=== PATIENT | female | born 1985 | race Two or more races ===

== ENCOUNTER 2020-10-06 04:36 | Emergency (ER) | payer MEDICAID, SELFPAY ==
[2020-10-06 04:47] VITALS: BP 125/79; PULSE 84; RESP 18; TEMP 36.7; O2SAT 98; BMI 49.3
[2020-10-06] MEDS: Lidocaine/Racepinep/Tetracaine 3 ML GEL.PF.APP 1 ML TOPICAL (04:53)
--- NOTE | 2020-10-06 05:17 | ED_ITS ---
HPI - Skin/Abscess/Foreign Bdy General Chief complaint: Skin/Abscess/Foreign Body Stated complaint: Cyst on left breast Time Seen by Provider: 10/06/20 04:46 Source: patient Mode of arrival: ambulatory Limitations: no limitations History of Present Illness HPI narrative: This is a 35-year-old female, nondiabetic, who presents with progression of abscess to the 9 o'clock position on the left nipple. She states that that nipple had undergone a piercing quite a while back but she has not had anything in there for 3-4 months. Otherwise, she denies any fevers, chills. Related Data Previous Rx's Medication Instructions Recorded doxycycline monohydrate 100 mg PO BID 5 Days #10 cap 10/06/20 Allergies Allergy/AdvReac Type Severity Reaction Status Date / Time fish Allergy Unknown stomach Uncoded 10/06/20 05:17 upset Seafood AdvReac Mild VOMITING Uncoded 10/06/20 05:17 Review of Systems Review of Systems: Pertinent positives and negatives as stated in HPI 10 point review of systems is otherwise negative. PMFSH Past Medical History Source: nursing notes reviewed Medical History Migraine Social History Social History Advance Directives: No Physical Exam Vital Signs: Vital Signs: Last Vital Signs Temp 98.1 F 10/06/20 04:47 Pulse 84 10/06/20 04:47 Resp 18 10/06/20 04:47 BP 125/79 10/06/20 04:47 Pulse Ox 98 10/06/20 04:47 Body Mass Index 49.3 VITAL SIGNS: Reviewed. GENERAL: Well developed, well nourished, in no acute distress. HEAD: Normocephalic/atraumatic, EYES: PERRLA, EOMI intact without pain, no nystagmus/pallor/icterus noted EARS: Ext canals without abnormality, TMs non-bulging and non-erythematous NOSE: Nares patent bilateral OROPHARYNX: no oral lesions noted, posterior pharynx clear and non-erythematous without noted tonsillar enlargement/erythema/exudates LEFT NIPPLE: there is a small abscess to the left nipple at the 9 o'clock position without evidence of peau de orange, erythema NECK: Supple, no adenopathy LUNGS: Normal breath sounds. No adventitious sounds or accessory muscle use. Sp O2<98> CARDIOVASCULAR: Regular rate and rhythm without noted murmurs, no JVD or lower extremity edema. ABDOMEN: Soft, non-tender, non-distended with bowel sounds. No rigidity. No guarding. No palpable masses or hernias noted MUSCULOSKELETAL: No tenderness, deformities, or effusions noted on gross inspection. EXTREMITIES: No cyanosis, clubbing or edema. SKIN: Inspection of the skin reveals no rashes, ulcerations, jaundice, pallor, or petechiae. NEUROLOGIC: Alert and oriented x 4. Strength and sensation to light touch were grossly intact x 4. Course Course Course Narrative: This is a 35-year-old female with history and clinical presentation most consistent with abscess of left nipple. Patient tolerated incision and drainage of abscess without any perceived complications. On re- evaluation she feels better and will be following up with a primary care provider today. Procedures Abscess I/D Site: chest ( Left nipple) Side (if applicable): left Sedation/analgesia: none Technique: incised with blade (#11) Amount of fluid expressed (mL): 3 Sent for culture/gram staining?: No Irrigation: No Packing used?: none Complications: other ( none) Discharge Plan Discharge Clinical Impression: Abscess of skin or subcutaneous tissue Patient Disposition: Home, Self-Care Instructions: Abscess Incision and Drainage (DC) Additional Instructions: 1. Please apply warm moist compresses to the area 3 times a day to facilitate complete evacuation of the infection. 2. Follow-up with your primary care provider for further evaluation and management of this abscess as in rare instances it could be indicative of a more concerning problem. 3. Tylenol 1000 mg, orally, every 6 hours as needed for pain control. Do not exceed 4000 mg within 24 hours. 4. Ibuprofen 400 mg, orally with milk or food, every 6 hours as needed for pain control. The patient and/or family acknowledge understanding of results (as applicable), diagnosis, treatment plan, need for follow up, and symptoms that should prompt a return to the emergency room. Prescriptions: New doxycycline monohydrate 100 mg capsule 100 mg PO BID 5 Days Qty: 10 RF: 0 Referrals: Physician,Unknown [Primary Care Provider] - 2 days
--- NOTE | 2020-10-06 05:17 | PC.NURSE ---
TO BEDSIDE TO DRAIN LEFT NIPPLE ?ABSCESS, WITH #11 BLADE. POVIDONE-IODINE SWAB USED TO CLEANSE AREA BEFOREHAND. PT MEDICATED WITH TOPICAL GEL ORDERED, PLACED ONTO LEFT NIPPLE. PT REPORTED INCREASED PAIN AND BURNING SENSATION SHORTLY AFTER BEING MEDICATED WITH GEL. EXCESS GEL REMOVED PER PT REQUEST WITH [facility]. AWARE. THICK YELLOW/GREEN PUS REMOVED FROM ABSCESS ON LEFT NIPPLE. PLAN TO DISCHARGE HOME WITH ANTIBIOTICS AND PLAN TO FOLLOW UP WITH PRIMARY CARE PHYSICIAN AND BREAST SPECIALIST. PT AWARE & AGREEABLE WITH PLAN OF CARE.
== END 2020-10-06 05:50 | disposition home or self-care (01) ==
PROVIDERS: Emergency Provider Student in an Organized Health Care Education/Training Program
DX: N61.1 Abscess of the breast and nipple (principal); N64.4 Mastodynia; Z79.899 Other long term (current) drug therapy
CPT/HCPCS: 10060; 99283; 99284

== ENCOUNTER 2022-03-23 14:50 | Emergency (ER) | payer MEDICAID, SELFPAY ==
--- NOTE | ~2022-03-23 | CT_ITS ---
EXAMINATION: CT ABDOMEN AND PELVIS WITHOUT CONTRAST CLINICAL INFORMATION: Right flank pain COMPARISON: None TECHNIQUE: Multidetector volumetric imaging was performed from the superior aspect of the liver through the pubic symphysis. Sagittal and coronal reformatted images were obtained on the technologist's workstation. This CT examination was performed using dose optimization techniques as appropriate, variously including the following: *Automated exposure control *Adjustment of mA and/or kV according to patient size (this includes techniques or standardized protocols for targeted exams where dose is matched to indication/reason for exam; i.e. extremities or head) *Use of iterative reconstruction technique DLP: 1127 mGy-cm FINDINGS: LUNG BASES: The visualized lung bases are unremarkable. LIVER, GALLBLADDER, AND BILIARY TREE: The liver is normal in size, shape, and attenuation. No focal hepatic lesion or biliary ductal dilatation is present. Probable gallstones PANCREAS: Unremarkable. SPLEEN: Unremarkable. ADRENAL GLANDS: Unremarkable. KIDNEYS AND URETERS: 2 small nonobstructing calculi mid to upper pole on the right. Some mild fullness of the right collecting system cannot be excluded. BLADDER: Unremarkable. GASTROINTESTINAL TRACT: The bowel pattern is felt to be nonobstructing. The partially visualized appendix is within normal limits ABDOMINAL WALL: No significant hernia is appreciated. LYMPH NODES: Normal. VASCULAR: Unremarkable. PELVIC VISCERA: Unremarkable. OSSEOUS STRUCTURES: Unremarkable. CT/CT abdomen pelvis wo con IMPRESSION: 2 small nonobstructing calculi in the mid to upper pole of the right kidney. Largest measuring 2 mm. There is mild fullness of the right renal collecting system but the ureter is not dilated and there is no evidence of ureteral stone or obstruction. The bowel pattern is nonobstructing. Gallstones are noted Fleischner guidelines were followed.
[2022-03-23 15:12] VITALS: BP 124/50; PULSE 77; RESP 18; TEMP 36.9; O2SAT 98; BMI 45.1
[2022-03-23 15:38] LABS: Appearance Urine HAZY; Color Urine YELLOW; Glucose Urine UA NEG (NEG); Leukocyte Esterase Urine NEG (NEG); Nitrite Urine NEG (NEG); PH 6.5 (5.0-8.0); Specific Gravity - Urine 1.015 (1.005-1.025); UACC Culture Trigger NO; Urine Blood 2+ (NEG); Urine Ketones NEG (NEG); Urine Protein NEG (NEG-TRACE)
[2022-03-23 15:39] LABS: UPreg QC Valid YES; Urine Pregnancy NEGATIVE (NEGATIVE)
[2022-03-23 15:46] LABS: Bacteria Urine 2+ /LPF; Squamous Epithelial Cell Urine 4+ /LPF; WBC Urine 0 /HPF (0-4)
[2022-03-23 16:09] LABS: MANUAL DIFF FLAG NO
[2022-03-23 16:12] LABS: Basophils Percent Auto 0.4 % (0-2); Eosinophils Absolute Auto 0.1 X10*3/uL (0.0-0.4); Eosinophils Percent Auto 1.5 % (0-4); Hematocrit 35.8 % (37.0-47.0); Hemoglobin 11.2 g/dl (12.0-16.0); Imm Gran Abs Auto 0.04 X10*3/uL (0.00-0.03); Imm Gran Pct Auto 0.4 % (0.0-0.4); Lymphocytes Absolute Auto 2.4 X10*3/uL (1.2-4.9); Lymphocytes Percent Auto 25.2 % (20-40); Mean Corpuscular HGB Conc 31.3 g/dl (31.0-35.0); Mean Corpuscular Hemoglobin 25.6 pg (27.0-33.0); Mean Corpuscular Volume 81.9 fL (80.0-98.0); Monocytes Absolute Auto 0.8 X10*3/uL (0.1-1.2); Monocytes Percent Auto 7.9 % (2-11); Neutrophils Absolute Auto 6.2 x10*3/uL (2.0-8.3); Neutrophils Percent Auto 64.6 % (45-73); Platelet Count 344 X10*3/uL (160-400); Red Blood Count 4.37 X10*6/uL (4.20-5.50); Red Cell Distribution Width 13.7 % (11.0-16.0); White Blood Count 9.5 X10*3/uL (4.8-10.8)
--- NOTE | 2022-03-23 16:12 | ED_ITS ---
HPI - General Adult General Chief complaint: General Medical Stated complaint: question kidney stone Source: patient Mode of arrival: ambulatory Limitations: no limitations History of Present Illness HPI narrative: 36-year-old female presents with 3 days of right-sided sharp stabbing intermittent flank pain. States that it feels like her prior history of kidney stones. Does not have any fevers, chills, nausea or vomiting at this time. Onset (ago): day(s) (3) Location: abdomen and left (Flank) Radiation: non-radiation Severity: moderate Severity scale (1-10): 8 Quality: stabbing and sharp Pain Consistency: intermittent Relieving factors: none Exacerbating factors: movement Associated symptoms: denies other symptoms Treatments prior to arrival: NSAID Related Data Previous Rx's Medication Instructions Recorded doxycycline monohydrate 100 mg 100 mg PO BID 5 Days #10 cap 10/06/20 capsule ibuprofen 600 mg tablet 600 mg PO Q6H PRN #60 tab 03/23/22 prednisone 20 mg tablet 20 mg PO DAILY 4 Days #4 tab 03/23/22 tamsulosin 0.4 mg capsule (Flomax) 0.4 mg PO DAILY #30 cap 03/23/22 Allergies Allergy/AdvReac Type Severity Reaction Status Date / Time fish Allergy Unknown stomach Uncoded 03/23/22 15:14 upset Seafood AdvReac Mild VOMITING Uncoded 03/23/22 15:14 Review of Systems Review of Systems: Constitutional: No Fever, No Chills ENT/Mouth: No sore throat Eyes: No Eye Pain, No Swelling, No Redness Cardiovascular: No Chest Pain, No SOB Respiratory: No Cough, No Sputum, No Wheezing Gastrointestinal: No Nausea, no Vomiting, No Diarrhea, positive abdominal pain Genitourinary: No Dysuria, no urinary frequency, positive Hematuria, positive Flank Pain, no hesitancy Musculoskeletal: No joint pain, No Myalgias Skin: No Skin Lesions, No rash Neuro: No Weakness, No Numbness, No Headache Psych: No Anxiety/Panic, No Depression Heme/Lymph: No Bruising, No Lymphadenopathy Endocrine: No Polyuria, No Polydipsia Yes all other systems are reviewed and are negative [facility] Past Medical History Attestation statement: The following information was validated with the patient. Source: old records reviewed Medical History Migraine Social History Social History Advance Directives: No Advance Directives Information Provided: No Physical Exam ED Vital Signs: Vital Signs - 24 hr 03/23/22 15:12 03/23/22 17:06 Temperature 98.5 F 98.3 F Pulse Rate 77 90 Respiratory Rate 18 18 Blood Pressure 124/50 L 95/48 L Pulse Oximetry 98 100 BMI result Body Mass Index 45.1 Appearance: Alert. Oriented X3. No acute distress. Eyes: Pupils equal, round and reactive to light. EOMI. Sclera nonicteric. ENT: Pharynx normal. Moist mucous membranes. Neck: Normal inspection. Neck supple. CVS: Normal heart rate and rhythm. Apical pulse equal pulses to extremities. Respiratory: No respiratory distress. Breath sounds normal. Abdomen: Soft and nontender. Right-sided CVA tenderness. Skin: Skin warm and dry. Normal skin color. Normal skin turgor. Extremities: No lower extremity edema. Gait well-balanced well coordinated. Neuro: No motor deficit. No sensory deficit. Cranial nerves 2-12 intact Course Course Course Narrative: 36-year-old female presents with 3 days of right-sided intermittent sharp stabbing flank pain. Has a history of kidney stones. Urinalysis positive for heme. Physical exam positive for CVA tenderness, no abdominal tenderness to palpation. Will order CT scan of abdomen pelvis. 18:16 CT scan positive for kidney stones without obstruction or hydronephrosis or pyelo. Patient does have a urologist, I will refer to Dr. Hughes. Will prescribe Flomax and prednisone. Patient verbalized understanding of and agrees to plan of care to discharge home. Verbalized understanding of signs and symptoms indicating need for emergent intervention Medical Decision Making Differential Diagnosis Differential Diagnosis: Kidney stone, hydronephrosis, UTI Medical Records Medical records reviewed: Yes I reviewed the patient's medical records. Lab Data Lab results reviewed: Yes I reviewed the patient's lab results. Result diagrams: 03/23/22 16:06 03/23/22 16:06 Labs: Lab Results 03/23/22 03/23/22 03/23/22 Range/Units 15:30 15:30 16:06 WBC 9.5 (4.8-10.8) X10*3/uL RBC 4.37 (4.20-5.50) X10*6/uL Hgb 11.2 L (12.0-16.0) g/dl Hct 35.8 L (37.0-47.0) % MCV 81.9 (80.0-98.0) fL MCH 25.6 L (27.0-33.0) pg MCHC 31.3 (31.0-35.0) g/dl RDW 13.7 (11.0-16.0) % Plt Count 344 (160-400) X10*3/uL MPV 9.0 L (9.4-12.3) fL Immature Gran % (Auto) 0.4 (0.0-0.4) % Neut % (Auto) 64.6 (45-73) % Lymph % (Auto) 25.2 (20-40) % [place] % (Auto) 7.9 (2-11) % Eos % (Auto) 1.5 (0-4) % Baso % (Auto) 0.4 (0-2) % Lymph # (Auto) 2.4 (1.2-4.9) X10*3/uL [place] # (Auto) 0.8 (0.1-1.2) X10*3/uL Eos # (Auto) 0.1 (0.0-0.4) X10*3/uL Baso # (Auto) 0.0 (0.0-0.2) X10*3/uL Abs Immat Gran (auto) 0.04 H (0.00-0.03) X10*3/uL Absolute Neuts (auto) 6.2 (2.0-8.3) x10*3/uL Absolute Nucleated RBC 0.000 (0.0-0.012) X10*3/uL Nucleated RBC % (auto) 0.0 (0.0-0.2) /100WBC Sodium (135-145) mmol/L Potassium (3.3-5.1) mmol/L Chloride (96-108) mmol/L Carbon Dioxide (22-29) mmol/L Anion Gap (12-20) BUN (9-16) mg/dL Creatinine (0.5-1.4) mg/dL Estim Creat Clear Calc Estimated GFR Random Glucose (60-115) mg/dL Calcium (8.4-10.2) mg/dL Urine Color YELLOW Urine Appearance HAZY Urine pH 6.5 (5.0-8.0) Ur Specific [place] 1.015 (1.005-1.025) Urine Protein NEG (NEG-TRACE) MG/DL Urine Glucose (UA) NEG (NEG) MG/DL Urine Ketones NEG (NEG) MG/DL Urine Blood 2+ H (NEG) Urine Nitrite NEG (NEG) Ur Leukocyte Esterase NEG (NEG) Urine RBC 1-4 (0) /HPF Urine WBC 0 (0-4) /HPF Ur Squamous Epith Cells 4+ /LPF Urine Bacteria 2+ /LPF Urine Test NEGATIVE (NEGATIVE) 03/23/22 Range/Units 16:06 WBC (4.8-10.8) X10*3/uL RBC (4.20-5.50) X10*6/uL Hgb (12.0-16.0) g/dl Hct (37.0-47.0) % MCV (80.0-98.0) fL MCH (27.0-33.0) pg MCHC (31.0-35.0) g/dl RDW (11.0-16.0) % Plt Count (160-400) X10*3/uL MPV (9.4-12.3) fL Immature Gran % (Auto) (0.0-0.4) % Neut % (Auto) (45-73) % Lymph % (Auto) (20-40) % [place] % (Auto) (2-11) % Eos % (Auto) (0-4) % Baso % (Auto) (0-2) % Lymph # (Auto) (1.2-4.9) X10*3/uL [place] # (Auto) (0.1-1.2) X10*3/uL Eos # (Auto) (0.0-0.4) X10*3/uL Baso # (Auto) (0.0-0.2) X10*3/uL Abs Immat Gran (auto) (0.00-0.03) X10*3/uL Absolute Neuts (auto) (2.0-8.3) x10*3/uL Absolute Nucleated RBC (0.0-0.012) X10*3/uL Nucleated RBC % (auto) (0.0-0.2) /100WBC Sodium 141 (135-145) mmol/L Potassium 4.0 (3.3-5.1) mmol/L Chloride 108 (96-108) mmol/L Carbon Dioxide 27 (22-29) mmol/L Anion Gap 10 L (12-20) BUN 11 (9-16) mg/dL Creatinine 0.76 (0.5-1.4) mg/dL Estim Creat Clear Calc 150.3 Estimated GFR > 60 Random Glucose 92 (60-115) mg/dL Calcium 9.0 (8.4-10.2) mg/dL Urine Color Urine Appearance Urine pH (5.0-8.0) Ur Specific [place] (1.005-1.025) Urine Protein (NEG-TRACE) MG/DL Urine Glucose (UA) (NEG) MG/DL Urine Ketones (NEG) MG/DL Urine Blood (NEG) Urine Nitrite (NEG) Ur Leukocyte Esterase (NEG) Urine RBC (0) /HPF Urine WBC (0-4) /HPF Ur Squamous Epith Cells /LPF Urine Bacteria /LPF Urine Test (NEGATIVE) Imaging Data CT abdomen pelvis: Attestation: I personally reviewed and interpreted this imaging study as follows: Radiologist's impression: EXAMINATION: CT ABDOMEN AND PELVIS WITHOUT CONTRAST? CLINICAL INFORMATION: Right flank pain? COMPARISON: None? TECHNIQUE: Multidetector volumetric imaging was performed from the superior aspect of the liver through the pubic symphysis. Sagittal and coronal reformatted images were obtained on the technologist's workstation.? This CT examination was performed using dose optimization techniques as appropriate, variously including the following: *Automated exposure control *Adjustment of mA and/or kV according to patient size (this includes techniques or standardized protocols for targeted exams where dose is matched to indication/reason for exam; i.e. extremities or head) *Use of iterative reconstruction technique DLP: 1127 mGy-cm FINDINGS: LUNG BASES: The visualized lung bases are unremarkable.? LIVER, GALLBLADDER, AND BILIARY TREE: The liver is normal in size, shape, and attenuation. No focal hepatic lesion or biliary ductal dilatation is present. Probable gallstones? PANCREAS: Unremarkable.? SPLEEN: Unremarkable.? ADRENAL GLANDS: Unremarkable.? KIDNEYS AND URETERS: 2 small nonobstructing calculi mid to upper pole on the right. ?Some mild fullness of the right collecting system cannot be excluded. BLADDER: Unremarkable.? GASTROINTESTINAL TRACT: The bowel pattern is felt to be nonobstructing. The partially visualized appendix is within normal limits? ABDOMINAL WALL: No significant hernia is appreciated.? LYMPH NODES: Normal. VASCULAR: Unremarkable. PELVIC VISCERA: Unremarkable.? OSSEOUS STRUCTURES: Unremarkable.? CT/CT abdomen pelvis wo con IMPRESSION: 2 small nonobstructing calculi in the mid to upper pole of the right kidney. Largest measuring 2 mm. ? There is mild fullness of the right renal collecting system but the ureter is not dilated and there is no evidence of ureteral stone or obstruction. ? The bowel pattern is nonobstructing. ? Gallstones are noted? ? Fleischner guidelines were followed. Discharge Plan Discharge Clinical Impression: Kidney stone Patient Disposition: Home, Self-Care Instructions: Kidney Stones (ED) Additional Instructions: You were evaluated for right-sided flank pain. CT scan abdomen pelvis indicates kidney stones without obstruction. Please take prednisone 20 mg daily for the next 4 days. We gave you 1st dose in the emergency department. Please start this medication tomorrow. Please take Flomax 0.4 mg daily. Start this medication tomorrow. We gave 1st dose in the emergency department. Follow-up with urology. Thank you for choosing this emergency department for evaluation. Please follow-up with primary care physician as needed. Return to the emergency department for any new, concerning, or worsening symptoms. Prescriptions: New prednisone 20 mg tablet 20 mg PO DAILY 4 Days Qty: 4 0RF tamsulosin [Flomax] 0.4 mg capsule 0.4 mg PO DAILY Qty: 30 0RF ibuprofen 600 mg tablet 600 mg PO Q6H PRN (Reason: pain) Qty: 60 0RF No Action doxycycline monohydrate 100 mg capsule 100 mg PO BID 5 Days Qty: 10 0RF Referrals: Albert Hughes MD [Physician] - (Kidney stones) Interventions: ED Discharge Assessment Last Done: 03/23/22 18:34 Discharge Date/Time: 03/23/22 18:40
[2022-03-23 16:27] LABS: Anion Gap 10 (12-20); Blood Urea Nitrogen 11 mg/dL (9-16); Carbon Dioxide 27 mmol/L (22-29); Chloride 108 mmol/L (96-108); Creatinine Clr Calc Pharmacy 150.3; Estimated Glomerular Filt Rate > 60; Glucose Random 92 mg/dL (60-115); Sodium 141 mmol/L (135-145)
[2022-03-23] MEDS: 0.9 % Sodium Chloride 1,000 ML 999 ML IVCONT (17:05)
[2022-03-23] MEDS: Morphine Sulfate 4 MG/ML CARTRIDGE IVPUSH (17:05)
[2022-03-23] MEDS: ondansetron HCL 4 MG/2 ML VIAL IVPUSH (17:05)
[2022-03-23 17:06] VITALS: BP 95/48; PULSE 90; RESP 18; TEMP 36.8; O2SAT 100
[2022-03-23] MEDS: Tamsulosin HCL 0.4 MG CAPSULE PO (18:31)
[2022-03-23] MEDS: predniSONE 20 MG TABLET PO (18:31)
== END 2022-03-23 18:40 | disposition home or self-care (01) ==
PROVIDERS: Emergency Provider Emergency Medicine
DX: N20.0 Calculus of kidney (principal); Z87.442 Personal history of urinary calculi
CPT/HCPCS: 36415; 74176; 80048; 81001; 81025; 85025; 96361; 96374; 96375; 99284; J2270; J2405

== ENCOUNTER 2022-05-04 22:24 | Emergency (ER) | payer MEDICAID, SELFPAY ==
[2022-05-04 22:31] VITALS: BP 93/45; PULSE 84; RESP 18; TEMP 35.8; O2SAT 100; BMI 53.1
[2022-05-04 23:40] LABS: Appearance Urine HAZY; Color Urine YELLOW; Glucose Urine UA NEG (NEG); Leukocyte Esterase Urine 1+ (NEG); Nitrite Urine NEG (NEG); UACC Culture Trigger YES; Urine Blood 1+ (NEG); Urine Ketones NEG (NEG); Urine Protein TRACE MG/DL (NEG-TRACE)
[2022-05-04 23:42] LABS: UPreg QC Valid YES; Urine Pregnancy NEGATIVE (NEGATIVE)
[2022-05-04 23:46] LABS: Amorphous Sediment Urine 1+ /LPF; Bacteria Urine 1+ /LPF; Calcium Phosphate Crystals Ur TRACE /LPF; Mucus Urine 2+ /LPF; RBC Urine 0-2 /HPF (0); Squamous Epithelial Cell Urine 2+ /LPF
[2022-05-05] VITALS: BP 122/67; PULSE 82; RESP 16; TEMP 37; O2SAT 97
--- NOTE | 2022-05-05 00:04 | ED_ITS ---
HPI - Abdominal Pain General Chief Complaint: Abdominal Pain Stated Complaint: right lower back pain ? kidney stones Time Seen by Provider: 05/05/22 00:04 Source: patient Mode of arrival: ambulatory Limitations: no limitations History of Present Illness HPI narrative: Patient history of nonobstructive right kidney stone comes here for pain which is going on for a month was seen here in 04/10 CT scan was done which showed a 2 mm nonobstructive right kidney stone. Patient also complaining of nausea. No urinary complaints no hematuria no fever or chills no abdominal pain patient was seen by urologist conservative treatment was advised Related Data Previous Rx's Medication Instructions Recorded doxycycline monohydrate 100 mg 100 mg PO BID 5 days #10 caps 10/06/20 capsule ibuprofen 600 mg tablet 600 mg PO Q6H PRN pain #60 tabs 03/23/22 prednisone 20 mg tablet 20 mg PO DAILY 4 days #4 tabs 03/23/22 tamsulosin 0.4 mg capsule (Flomax) 0.4 mg PO DAILY #30 caps 03/23/22 cefuroxime axetil 500 mg tablet 500 mg PO BID 7 days #14 tabs 05/05/22 ondansetron 4 mg disintegrating 4 mg PO Q6-8H PRN nausea and 05/05/22 tablet vomiting #7 tabs oxycodone 5 mg tablet 5 mg PO Q6H PRN pain #20 tabs 05/05/22 Allergies Allergy/AdvReac Type Severity Reaction Status Date / Time fish Allergy Unknown stomach Uncoded 03/23/22 15:14 upset Seafood AdvReac Mild VOMITING Uncoded 03/23/22 15:14 Review of Systems Review of Systems Yes all other systems are reviewed and are negative [facility] Past Medical History Medical History Migraine Social History Social History Advance Directives: No Advance Directives Information Provided: Yes Physical Exam ED Vital Signs: Vital Signs - 24 hr 05/04/22 22:31 05/05/22 00:00 Temperature 96.5 F L 98.6 F Pulse Rate 84 82 Respiratory Rate 18 16 Blood Pressure 93/45 L 122/67 Pulse Oximetry 100 97 Oxygen Delivery Method Room Air Room Air BMI result Body Mass Index 53.1 Appearance: Alert. Oriented X3. No acute distress. ENT: Pharynx normal. Oral Mucosa moist Neck: Normal inspection. Neck supple. CVS: Normal heart rate and rhythm. Pulses normal. Respiratory: No respiratory distress. Equal air entry bilateral, no wheezing/rales/rhonchi Abdomen: Soft and nontender. Bowel sounds are present, no mass palpable, R CVA tenderness Skin: Skin warm and dry. Normal skin color. Normal skin turgor. Extremities: No lower extremity edema. No calf tenderness Neuro: Oriented X 3. No motor deficit. MDM - Abdominal Pain MDM Narrative Medical decision making narrative: Patient with chronic right flank pain nonobstructive kidney stone urine shows leukocyte will discharge patient home on Ceftin and pain medication Lab Data Attestation: I reviewed the patient's lab results. Labs: Lab Results 05/04/22 05/04/22 Range/Units 23:24 23:24 Urine Color YELLOW Urine Appearance HAZY Urine pH 7.0 (5.0-8.0) Ur Specific [place] 1.010 (1.005-1.025) Urine Protein TRACE (NEG-TRACE) MG/DL Urine Glucose (UA) NEG (NEG) MG/DL Urine Ketones NEG (NEG) MG/DL Urine Blood 1+ H (NEG) Urine Nitrite NEG (NEG) Ur Leukocyte Esterase 1+ H (NEG) Urine RBC 0-2 (0) /HPF Urine WBC 1-4 (0-4) /HPF Ur Squamous Epith Cells 2+ /LPF Calcium Phosphate Cryst TRACE /LPF Amorphous Sediment 1+ /LPF Urine Bacteria 1+ /LPF Urine Mucus 2+ /LPF Urine Test NEGATIVE (NEGATIVE) Discharge Plan Discharge Clinical Impression: Calculus of kidney, UTI (urinary tract infection) Patient Disposition: Home, Self-Care Instructions: Kidney Stones (ED), Urinary Tract Infection in Women (ED) Additional Instructions: Drink plenty of fluids Take pain medication and antibiotic as prescribed Follow urology Prescriptions: New cefuroxime axetil 500 mg tablet 500 mg PO BID 7 Days Qty: 14 0RF ondansetron 4 mg tablet,disintegrating 4 mg PO Q6-8H PRN (Reason: nausea and vomiting) Qty: 7 0RF oxycodone 5 mg tablet 5 mg PO Q6H PRN (Reason: pain) Qty: 20 0RF Rx Instructions: Partial Fill upon patient request. No Action doxycycline monohydrate 100 mg capsule 100 mg PO BID 5 Days Qty: 10 0RF prednisone 20 mg tablet 20 mg PO DAILY 4 Days Qty: 4 0RF tamsulosin [Flomax] 0.4 mg capsule 0.4 mg PO DAILY Qty: 30 0RF ibuprofen 600 mg tablet 600 mg PO Q6H PRN (Reason: pain) Qty: 60 0RF
[2022-05-05] MEDS: Ondansetron ODT 4 MG TAB.RAPDIS TRANSLINGU (00:43)
[2022-05-05] MEDS: oxyCODONE HCl Immed Release 5 MG TABLET 10 MG PO (00:44)
--- NOTE | 2022-05-05 00:44 | PC.NURSE ---
scanner not working unable to scan medications in this room
== END 2022-05-05 00:56 | disposition home or self-care (01) ==
PROVIDERS: Emergency Provider Internal Medicine; PCP Internal Medicine
DX: N39.0 Urinary tract infection, site not specified (principal); N20.0 Calculus of kidney
CPT/HCPCS: 81001; 81025; 87086; 87147; 99283; 99284

== ENCOUNTER 2022-08-24 17:31 | Emergency (ER) | payer MEDICAID, SELFPAY ==
--- NOTE | ~2022-08-24 | XR_ITS ---
EXAMINATION: XR WRIST, LEFT CLINICAL INFORMATION: Ongoing pain COMPARISON: None TECHNIQUE: PA, lateral, oblique, and scaphoid views of the left wrist. FINDINGS: No fracture or dislocation. Joint spaces are maintained. Scapholunate interval is normal. Pronator fat pad is intact. No chondrocalcinosis or erosions. XR/XR wrist LT min 3V IMPRESSION: 1. No acute osseous injury identified.
[2022-08-24 18:17] VITALS: BP 139/84; PULSE 81; RESP 16; TEMP 36.1; O2SAT 98; BMI 56.0
--- NOTE | 2022-08-24 21:24 | ED_ITS ---
HPI - Extremity Problem General Chief complaint: Extremity Injury, Upper Stated complaint: L wrist pain Time Seen by Provider: 08/24/22 20:53 Source: patient Mode of arrival: ambulatory Limitations: no limitations History of Present Illness HPI Narrative: Patient presents emergency department for evaluation of atraumatic left wrist pain with tightness and numbness in to the hand at the base of the 2nd and 3rd f tamiko. At times she feels a cool sensation to the fingers. Denies any precipitating injury. At first she thought that she had slept on it wrong but the pain continued after couple of days. Denies pain traveling up the arm. Denies any swelling of the arm. Denies history of blood. Related Data Previous Rx's Medication Instructions Recorded doxycycline monohydrate 100 mg 100 mg PO BID 5 days #10 caps 10/06/20 capsule ibuprofen 600 mg tablet 600 mg PO Q6H PRN pain #60 tabs 03/23/22 prednisone 20 mg tablet 20 mg PO DAILY 4 days #4 tabs 03/23/22 tamsulosin 0.4 mg capsule (Flomax) 0.4 mg PO DAILY #30 caps 03/23/22 cefuroxime axetil 500 mg tablet 500 mg PO BID 7 days #14 tabs 05/05/22 ondansetron 4 mg disintegrating 4 mg PO Q6-8H PRN nausea and 05/05/22 tablet vomiting #7 tabs oxycodone 5 mg tablet 5 mg PO Q6H PRN pain #20 tabs 05/05/22 Allergies Allergy/AdvReac Type Severity Reaction Status Date / Time fish Allergy Unknown stomach Uncoded 08/24/22 18:20 upset Seafood AdvReac Mild VOMITING Uncoded 08/24/22 18:20 Review of Systems Review of Systems: Musculoskeletal: positive wrist pain Yes all other systems are reviewed and are negative COUNT INCLUDES THE [facility] Past Medical History Attestation statement: The following information was validated with the patient. Source: old records reviewed Medical History Migraine Social History Social History Advance Directives: No Physical Exam Vital Signs: Vital Signs: Last Vital Signs Temp 97.0 F 08/24/22 18:17 Pulse 81 08/24/22 18:17 Resp 16 08/24/22 18:17 BP 139/84 08/24/22 18:17 Pulse Ox 98 08/24/22 18:17 O2 Del Method 08/24/22 18:17 BMI result Body Mass Index 56.0 Vital signs have been reviewed as normal and appeared to be correct. Blood pressure normal.? Heart rate normal.? Respiration rate normal. Temperature normal.? Oxygen saturation normal. Appearance: Alert.?Oriented to person, place and time. No acute distres s.?Normal affect. Eyes: Pupils equal, round and reactive to light.? ENT: Pharynx normal.?? Neck: Normal inspection.? Neck supple.?? CVS: Heart sounds normal. Normal heart rate and rhythm.? Pulses normal.?? Respiratory: No respiratory distress.? Lung sounds clear to auscultation bilaterally?? Abdomen: Soft and non-tender. Skin: Skin warm and dry.? Normal skin color.? Extremities: No lower extremity edema.? positive Tinel sign to left wrist, due to pain difficulty performing Phalen's sign. No obvious deformity. No erythema, swelling, warmth, rash. Palpable 2+ radial pulse bilaterally. Neuro: Moves all extremities spontaneously. Sensation intact bilaterally. No focal neuro deficits. Ambulates with normal steady gait. Course Course Course Narrative: Patient is a 37-year-old female no significant past medical history presenting to emergency department for evaluation of atraumatic left wrist pain. Extremities neurovascularly intact distally. XR reveals no acute fracture or dislocation. Has a positive Tinel sign upon examination, concerning for carpal tunnel syndrome. Receive naproxen while in the emergency department. Discussed plan of care for rest, activity modification, NSAID, a wrist splint. Outpatient follow-up with primary care provider. Reviewed worrisome signs symptoms to return back to emergency department for. All questions were answered. Patient discharged home in stable condition. MDM - Extremity (Nontraumatic) Medical Records Attestation: I reviewed the patient's medical records. Imaging Data XR wrist: Radiologist's impression: XR/XR wrist LT min 3V IMPRESSION: ? 1. No acute osseous injury identified. ? Discharge Plan Discharge Clinical Impression: Acute wrist pain Patient Disposition: Home, Self-Care Instructions: Arthralgia (ED) Additional Instructions: As discussed, The x-ray of your wrist was normal today, and it is possible that your pain is due to carpal tunnel syndrome. You have been given a prescription for naproxen to take twice daily, please take this with food to prevent stomach upset. Do not take additional [id number] ibuprofen / Motrin/ Advil/ Aleve/ aspirin while taking this medication. You have also been given a wrist splint, you should wear this at nighttime. Please contact your primary care provider to arrange for a follow-up visit within 1 week. Return to emergency department with any new or worsening symptoms or concerns. Prescriptions: No Action doxycycline monohydrate 100 mg capsule 100 mg PO BID 5 Days Qty: 10 0RF prednisone 20 mg tablet 20 mg PO DAILY 4 Days Qty: 4 0RF tamsulosin [Flomax] 0.4 mg capsule 0.4 mg PO DAILY Qty: 30 0RF ibuprofen 600 mg tablet 600 mg PO Q6H PRN (Reason: pain) Qty: 60 0RF cefuroxime axetil 500 mg tablet 500 mg PO BID 7 Days Qty: 14 0RF ondansetron 4 mg tablet,disintegrating 4 mg PO Q6-8H PRN (Reason: nausea and vomiting) Qty: 7 0RF oxycodone 5 mg tablet 5 mg PO Q6H PRN (Reason: pain) Qty: 20 0RF Rx Instructions: Partial Fill upon patient request.
[2022-08-24] MEDS: NaPROXEN 500 MG TABLET PO (21:34)
== END 2022-08-24 21:39 | disposition home or self-care (01) ==
PROVIDERS: Emergency Provider Emergency Medicine; PCP Internal Medicine
DX: M25.532 Pain in left wrist (principal)
CPT/HCPCS: 73110; 99283

== ENCOUNTER 2022-11-24 13:12 | Outpatient (REF) | payer MEDICAID, SELFPAY ==
--- NOTE | 2022-11-24 09:45 | EMG_ITS ---
Left median and ulnar motor and sensory studies were performed. Left radial sensory study was performed, and paraspinal muscles were tested with a needle. IMPRESSION: This study revealed mild left median neuropathy across carpal tunnel affecting sensory component. Otherwise, no significant abnormality was noted. MD POOL Zavala/RAYMOND / [id number]
== END 2022-11-24 13:13 | disposition home or self-care (01) ==
LOC: HO.NEURO 13:12
PROVIDERS: PCP Internal Medicine; Visit Provider Internal Medicine
DX: G56.02 Carpal tunnel syndrome, left upper limb (principal)
CPT/HCPCS: 95886; 95909

== ENCOUNTER → 2023-02-27 14:30 | Outpatient (BNVA) | payer MEDICAID, SELFPAY | PROVIDERS: PCP Internal Medicine; Visit Provider Physician Assistant ==

== ENCOUNTER → 2023-03-16 12:57 | Outpatient (BNVA) | payer MEDICAID, SELFPAY | PROVIDERS: PCP Internal Medicine; Visit Provider Physician Assistant | DX: E66.01 Morbid (severe) obesity due to excess calories (principal); K21.9 Gastro-esophageal reflux disease without esophagitis; M79.3 Panniculitis, unspecified; G47.33 Obstructive sleep apnea (adult) (pediatric); Z68.43 Body mass index [BMI] 50.0-59.9, adult; Z86.69 Personal history of other diseases of the nervous system and sense organs | CPT/HCPCS: 99202 ==

== ENCOUNTER → 2023-04-03 14:42 | Outpatient (BNVA) | payer MEDICAID, SELFPAY | PROVIDERS: PCP Internal Medicine; Referring Provider Physician Assistant; Visit Provider Dietitian, Registered | DX: E66.01 Morbid (severe) obesity due to excess calories (principal); Z68.43 Body mass index [BMI] 50.0-59.9, adult; Z71.3 Dietary counseling and surveillance | CPT/HCPCS: 97802 ==

== ENCOUNTER → 2023-04-11 11:00 | Outpatient (BNVA) | payer OTHER, MEDICAID, SELFPAY | PROVIDERS: PCP Internal Medicine; Referring Provider Physician Assistant; Visit Provider Counselor Mental Health | DX: F43.20 Adjustment disorder, unspecified (principal); E66.01 Morbid (severe) obesity due to excess calories ==

== ENCOUNTER → 2023-04-26 11:00 | Outpatient (BNVA) | payer MEDICAID, SELFPAY | PROVIDERS: PCP Internal Medicine; Visit Provider Physician Assistant | DX: E66.01 Morbid (severe) obesity due to excess calories (principal); Z68.43 Body mass index [BMI] 50.0-59.9, adult | CPT/HCPCS: 99212 ==

== ENCOUNTER 2023-05-10 | Outpatient (REF) | payer MEDICAID, SELFPAY | END 2023-05-10 00:01 | disposition home or self-care (01) | LOC: CF | PROVIDERS: PCP Internal Medicine; Visit Provider Dietitian, Registered | DX: E66.01 Morbid (severe) obesity due to excess calories (principal); Z71.3 Dietary counseling and surveillance | CPT/HCPCS: 97803 ==

== ENCOUNTER 2023-05-10 08:14 | Outpatient (REF) | payer MEDICAID, SELFPAY ==
--- NOTE | ~2023-05-10 | FL_ITS ---
EXAMINATION: XR FLUOROSCOPY UPPER GI WITH AIR CLINICAL INFORMATION: Obesity COMPARISON: None available. TECHNIQUE: Upper GI was performed using thin and thick barium and effervescent granules FINDINGS: Esophageal motility is normal. No hernia or reflux. The stomach and duodenum are normal. No fold thickening, mass, ulcer or stricture. FLUOROSCOPY TIME: 0.2 minutes DOSE AREA PRODUCT: 3.2 Meza per centimeter squared. Total dose 14 mgy. 16 saved fluoroscopic images FL/FL upper GI w air IMPRESSION: Unremarkable examination.
--- NOTE | ~2023-05-10 | XR_ITS ---
EXAMINATION: XR CHEST CLINICAL INFORMATION: Obesity COMPARISON: None available. TECHNIQUE: 2 views of the chest were obtained. FINDINGS: No significant abnormality is noted involving the heart, lungs, mediastinum, bony thorax or soft tissues. XR/XR chest 2V IMPRESSION: Unremarkable examination.
--- NOTE | ~2023-05-10 | US_ITS ---
EXAMINATION: US COMPLETE ABDOMEN WITH LIVER ELASTOGRAPHY CLINICAL INFORMATION: Obesity COMPARISON: Previous CT of the abdomen and pelvis March 2022 TECHNIQUE: Real-time imaging of the abdominal viscera. Noninvasive ultrasound liver fibrosis assessment is performed using Kelsie ElastPQ point quantification shear wave elastography (2D-SWE) with a C5-2 MHz transducer. Multiple elastography samples are obtained. FINDINGS: PANCREAS: Normal. ABDOMINAL AORTA: The proximal, middle, and distal aortic segments are normal in caliber. INFERIOR VENA CAVA: Visualized portions are normal. LIVER: Normal. The liver demonstrates normal size, contour and echogenicity. No focal lesion or intrahepatic biliary duct dilatation. The right lobe measures 18 cm in length. The left lobe measures 10 cm in length. Portal flow is normal/hepatopedal Shear wave liver elastography median stiffness is 1.28 m/s (reference: normal median stiffness is 1.3 m/s or less). IQR/median stiffness to assess sampling precision is 0.07 (reference: good quality data set is IQR/median stiffness of 0.15 or less). GALLBLADDER: Gallstones. The gallbladder is otherwise normal. COMMON BILE DUCT: Normal in caliber measuring 0.5 cm in diameter. RIGHT KIDNEY: Paolo and small stone in the upper pole measuring 3 mm. No hydronephrosis. The kidney measures 11.6 cm in maximum dimension. LEFT KIDNEY: Normal. No hydronephrosis. No renal calculi or focal parenchymal lesions. The kidney measures 12 cm in maximum dimension. SPLEEN: Normal. The spleen measures 10 cm in maximum dimension. FREE FLUID: None. US/US abdomen comp w elastography IMPRESSION: 1. Impression: Normal-appearing liver. Gallstones. Question small right renal stone. 2. Liver elastography: Adequate liver sampling. Normal liver stiffness. REFERENCE: Society of Radiologists in Ultrasound Liver Stiffness Thresholds (2020): LIVER STIFFNESS THRESHOLDS: *Liver Stiffness equal or less than 1.3 m/s: High probability of being normal. *Liver Stiffness less than 1.7 m/s: In the absence of other known clinical signs, rules out compensated advanced chronic liver disease. *Liver Stiffness 1.7-2.1 m/s: Suggestive of compensated advanced chronic liver disease but need further test for confirmation. *Liver Stiffness over 2.1 m/s: Rules in compensated advanced chronic liver disease. *Liver Stiffness over 2.4 m/s: Suggestive of clinically significant portal hypertension. QUALITY OF DATA SET: *IQR/Median value equal or less than 0.15 implies a quality data set. *IQR/Median value over 0.15 implies a poor quality data set. SIGNIFICANT CHANGE FROM PRIOR EXAM: Significant change if liver stiffness measurement is 10% or greater from prior exam. OTHER CONSIDERATIONS: The stage of liver fibrosis may be overestimated in the setting of acute hepatitis, liver inflammation, elevated liver function tests, hepatic vascular congestion, obstructive cholestasis, non-fasting state, and infiltrative diseases such as amyloidosis and lymphoma. In some patients with NAFLD, the liver stiffness thresholds for compensated advanced chronic liver disease may be lower. In causes other than viral hepatitis and NAFLD, liver stiffness thresholds are not well established.
--- NOTE | 2023-05-10 10:02 | ECG_ITS ---
Test Reason : e66.01 Blood Pressure : / mmHG Vent. Rate : 072 BPM Atrial Rate : 072 BPM P-R Int : 140 ms QRS Dur : 088 ms QT Int : 394 ms P-R-T Axes : 017 028 019 degrees QTc Int : 431 ms Normal sinus rhythm Normal ECG No previous ECGs available Referred By: Theresa Nichols Electronically Signed By:LUCHO RODRIGUEZ
[2023-05-10 10:13] LABS: MANUAL DIFF FLAG NO
[2023-05-10 10:47] LABS: Basophils Percent Auto 0.3 % (0-2); Eosinophils Absolute Auto 0.1 X10*3/uL (0.0-0.4); Eosinophils Percent Auto 1.6 % (0-4); Hematocrit 38.4 % (37.0-47.0); Hemoglobin 12.3 g/dl (12.0-16.0); Imm Gran Abs Auto 0.03 X10*3/uL (0.00-0.03); Imm Gran Pct Auto 0.3 % (0.0-0.4); Lymphocytes Absolute Auto 2.5 X10*3/uL (1.2-4.9); Lymphocytes Percent Auto 28.3 % (20-40); Mean Corpuscular Hemoglobin 26.4 pg (27.0-33.0); Mean Corpuscular Volume 82.4 fL (80.0-98.0); Monocytes Absolute Auto 0.6 X10*3/uL (0.1-1.2); Monocytes Percent Auto 6.4 % (2-11); Neutrophils Absolute Auto 5.6 x10*3/uL (2.0-8.3); Neutrophils Percent Auto 63.1 % (45-73); Platelet Count 376 X10*3/uL (160-400); Red Blood Count 4.66 X10*6/uL (4.20-5.50); Red Cell Distribution Width 14.2 % (11.0-16.0); White Blood Count 8.8 X10*3/uL (4.8-10.8)
[2023-05-10 11:26] LABS: Estimated Average Glucose 103 mg/dL; Hemoglobin A1c % 5.2 %
[2023-05-10 12:04] LABS: Alanine Aminotransferase 18 U/L (0-31); Albumin Level 3.9 g/dL (3.5-5.0); Alkaline Phosphatase 129 U/L (39-117); Anion Gap 13 (12-20); Aspartate Amino Transferase 15 U/L (5-31); Bilirubin Total 0.7 mg/dL (0.0-1.0); Blood Urea Nitrogen 6 mg/dL (9-16); C Reactive Protein 3.63 mg/dL (< or = 0.50); Calcium 9.1 mg/dL (8.4-10.2); Carbon Dioxide 26 mmol/L (22-29); Chloride 106 mmol/L (96-108); Cholesterol 173 mg/dL; Estimated Glomerular Filt Rate > 60; Glucose Random 93 mg/dL (60-115); HDL Cholesterol 50 mg/dL; Iron 53 mcg/dL (30-160); LDL Cholesterol Calculated 103 mg/dl; Percent Iron Saturation 15 % (15-50); Potassium 3.7 mmol/L (3.3-5.1); Sodium 141 mmol/L (135-145); Total Iron Binding Capacity 361 mcg/dL (228-428); Total Protein 8.2 g/dL (6.5-8.0); Triglycerides 101 mg/dL; Unsaturated Iron Binding 308 ug/dL
[2023-05-10 12:25] LABS: Ferritin 28 ng/mL (10-122); Insulin 32 uU/mL (2-29); TSH reflex Free T4 1.88 uIU/mL (0.32-4.0); Vitamin D 25-OH Total 12.9 ng/mL (>30)
[2023-05-10 12:29] LABS: Folate 13.5 ng/mL (> or = 4.0); Vitamin B12 403 pg/mL (200-900)
[2023-05-15 13:13] LABS: Zinc 66 mcg/dL (60-130)
[2023-05-15 14:32] LABS: PTHI 177 pg/mL (16-77)
[2023-05-17 05:23] LABS: Vitamin A 25 mcg/dL (38-98)
[2023-05-18 14:33] LABS: Vitamin B1 11 nmol/L (8-30)
== END 2023-05-10 08:15 | disposition home or self-care (01) ==
LOC: HO.US 08:14
PROVIDERS: PCP Internal Medicine; Visit Provider Physician Assistant
DX: Z01.818 Encounter for other preprocedural examination (principal); E66.01 Morbid (severe) obesity due to excess calories; K21.9 Gastro-esophageal reflux disease without esophagitis; G47.33 Obstructive sleep apnea (adult) (pediatric)
CPT/HCPCS: 36415; 71046; 74246; 76705; 76981; 80053; 80061; 82306; 82607; 82728; 82746; 83036; 83525; 83540; 83970; 84425; 84443; 84590; 84630; 85025; 86140; 93005

== ENCOUNTER 2023-08-29 14:29 | Outpatient (AMB) | payer MEDICAID, SELFPAY ==
--- NOTE | 2023-08-29 11:33 | MHC.OFFVISWM ---
Intake VS Expanded 08/29/23 14:42 BP 137/67 Blood Pressure Location Rt brachial Blood Pressure Position Sitting Pulse 75 Pulse Source Pulse Oximeter Temp 96.5 F L Temperature Source Tympanic Pulse Oximetry 99 Oxygen Delivery Method Room Air Height 5 ft Weight 301 lb 12.8 oz BMI 58.9 Body Fat % 51.7 Body Fat Mass 155.8 Fat Free Mass 145.8 Visceral Fat Rating 21.0 Body Water % 34.6 Body Water Mass 104.4 Muscle Mass/Score 138.4 Basal Metabolic Rate/Score 2,129 Intake Visit Reasons: (OV) F/U SWL Allergies fish Allergy (Unknown, Uncoded 08/29/23 14:41) stomach upset Seafood Adverse Reaction (Mild, Uncoded 08/29/23 14:41) VOMITING Medication List - Last Reconciled 08/29/23 by Theresa Nichols PA-C cholecalciferol (vitamin D3) 50 mcg PO DAILY clotrimazole 1% 1 appl topical BID levonorgestrel (Mirena) intrauterine loratadine 10 mg PO DAILY PRN HPI HPI Comments History of Present Illness Details [facility] follow up - has not been seen since April 26. Starting weight was 298.6 lbs on 03/16/23. Gained 3 lbs. Was having AUB and had Mirena inserted this month and started on iron supplements. Did not take Vit A or D supplements - will start now- needs vitamin A without fish products due to allergy - will buy OTC. Meal plan: not using now. Will use Premier shakes and Atkins bars Wakes at 4:45 am and bed at 10 - 11pm. 7:30 - 30 gram shake - over 30 minutes 10:30 bar 1:30- 2pm - shake 5pm - meal of 6 oz protein adn 6 oz vegetable, and 1 fruit 8pm - bar Exercise - Ghislaine Arvind 1mile every day. in am before work. Exercise plan: not yet Pre op work up completed as follows: [facility] classes - BH appts -cleared RD appts - follow up on 05/10, missed her follow up on 06/07 H pylori - not done yet - will do today Labs- Vit A and D deficient - PTH - 177. CXR and ECG - both normal ULS - gallstones, R 18 cms, L 11 cms UGI - normal PFSH Medical History (Updated 08/29/23 @ 11:38 by Theresa Nichols PA-C) Migraine Surgical History Hx of endoscopy Hx of breast surgery Hx of section Family History Mother Hypertension High cholesterol Father No problems noted. Sister Multiple sclerosis Hypertension Diabetes Brother Asthma Son Asthma Son No problems noted. Daughter Asthma Daughter No problems noted. Daughter No problems noted. Social History Alcohol intake: current Alcohol intake frequency: holidays/special occasions only Patient Tobacco Use Status: Never used Tobacco Assessment & Plan Assessment & Plan (1) Morbid obesity: Code(s): E66.01 - Morbid (severe) obesity due to excess calories Plan: Will restart our SWL program now. All appointments reviewed. She is being scheduled with Adeline now - recipe books given today. H pylori today SWL classes given access today. See HPI for her meal and exercise plans Next appt with me in 3 weeks. Patient is morbidly obese and is not considered stable at this time. I spent 30 minutes in total with patient reviewing/updating records, examining the patient and counseling the patient on weight management as detailed above. (2) Obstructive sleep apnea: Code(s): G47.33 - Obstructive sleep apnea (adult) (pediatric) (3) Vitamin D deficiency: Code(s): E55.9 - Vitamin D deficiency, unspecified Plan: will restart today and will recheck Vit D and PTH in 2 months. (4) Vitamin A deficiency: Code(s): E50.9 - Vitamin A deficiency, unspecified Plan: will buy OTC without fish oil (5) Elevated PTHrP level: Code(s): R79.89 - Other specified abnormal findings of blood chemistry Plan: see above Coding Level of Care Code Est Pt Level 4 (41504) Diagnoses Morbid obesity E66.01 Obstructive sleep apnea G47.33 Vitamin D deficiency E55.9 Vitamin A deficiency E50.9 Elevated PTHrP level R79.89
[2023-08-29 14:42] VITALS: BP 137/67; PULSE 75; TEMP 35.8; O2SAT 99; BMI 58.9
== END 2023-08-29 15:16 | disposition home or self-care (01) ==
PROVIDERS: PCP Internal Medicine; Visit Provider Physician Assistant
DX: E66.01 Morbid (severe) obesity due to excess calories (principal); G47.33 Obstructive sleep apnea (adult) (pediatric); E55.9 Vitamin D deficiency, unspecified; E50.9 Vitamin A deficiency, unspecified; R79.89 Other specified abnormal findings of blood chemistry
CPT/HCPCS: 99214

== ENCOUNTER 2023-08-29 14:29 | Outpatient (REF) | payer MEDICAID, SELFPAY ==
[2023-09-01 11:51] LABS: H Pylori Breath Test Negative (Negative)
== END 2023-08-29 14:30 | disposition home or self-care (01) ==
LOC: HO.LNP 14:29
PROVIDERS: PCP Internal Medicine; Visit Provider Physician Assistant
DX: Z01.818 Encounter for other preprocedural examination (principal); E66.01 Morbid (severe) obesity due to excess calories; K21.9 Gastro-esophageal reflux disease without esophagitis; G47.33 Obstructive sleep apnea (adult) (pediatric)
CPT/HCPCS: 83013; 99212

== ENCOUNTER 2023-09-25 16:00 | Outpatient (AMB) | payer MEDICAID, SELFPAY ==
--- NOTE | 2023-09-25 12:57 | MHC.OFFVISWM ---
Intake VS Expanded 09/25/23 16:15 Height 5 ft Weight 296 lb 2 oz BMI 57.8 Intake Visit Reasons: VIDEO F/U SWL Allergies fish Allergy (Unknown, Uncoded 08/29/23 14:41) stomach upset Seafood Adverse Reaction (Mild, Uncoded 08/29/23 14:41) VOMITING HPI HPI Comments History of Present Illness Details [facility] follow up - Starting weight was 298.6 lbs on 03/16/23, was not seen for 3 months and then had appt on August 29 with 3 lb weight gain. Has only lost 2 lbs in 6 months. Just released from [email or web address] due to kidney stones - had lithotripsy and stents now removed. Meal plan: 8am - 30 gram shake - over 30 minutes 10:30 bar 1pm - shake 5pm - meal of 6 oz protein and 6 oz vegetable (uses scale) and 1 fruit 8pm - bar sometimes Exercise - Has not been exercising at all, was doing LS, wants something else now Pre op work up completed as follows: SWL classes - watched the wrong ones/8 appts -cleared RD appts - follow up on 05/10, missed her follow up on 06/07 and 09/22. H pylori - negative Labs- Vit A and D deficient - PTH - 177. CXR and ECG - both normal ULS - gallstones, R 18 cms, L 11 cms UGI - normal PFSH Medical History (Updated 08/29/23 @ 11:38 by Theresa Nichols PA-C) Migraine Surgical History Hx of endoscopy Hx of breast surgery Hx of section Family History Mother Hypertension High cholesterol Father No problems noted. Sister Multiple sclerosis Hypertension Diabetes Brother Asthma Son Asthma Son No problems noted. Daughter Asthma Daughter No problems noted. Daughter No problems noted. Social History Alcohol intake: current Alcohol intake frequency: holidays/special occasions only Patient Tobacco Use Status: Never used Tobacco Assessment & Plan Assessment & Plan (1) Morbid obesity: Code(s): E66.01 - Morbid (severe) obesity due to excess calories Plan: 2 lb weight loss in 6 months, has not fully committed to the program yet. States shes ready now. Only meal plan change sit omeasure meal in [address] Juli Malhotra having only halff bar after dinner. Exercise - a MUST to start TBP videos at least 4 d/week Will schedule with me in 3 weeks and follow up with Adeline once she has watched all SWL videos. Patient is still morbidly obese and is not considered stable at this time. I spent 28 minutes in total speaking with the patient via telephone counseling , reviewing records and charting in patients chart. . (2) Obstructive sleep apnea: Code(s): G47.33 - Obstructive sleep apnea (adult) (pediatric) Telehealth Telehealth Location of provider rendering services: practice address Location of patient: address on file Patient Identification confirmed using: Name, : Yes Telehealth method: voice only Patient verbally consented to treatment: Yes Patient verbally consented to billing insurance company: Yes Patient informed of any privacy concerns related to visit: Yes Coding Level of Care Code Tele Est Pt Level 4 (80552) Diagnoses Morbid obesity E66.01 Obstructive sleep apnea G47.33
[2023-09-25 16:15] VITALS: BMI 57.8
== END 2023-09-25 16:29 | disposition home or self-care (01) ==
LOC: HO.HBS 16:20
PROVIDERS: PCP Internal Medicine; Visit Provider Physician Assistant
DX: E66.01 Morbid (severe) obesity due to excess calories (principal); G47.33 Obstructive sleep apnea (adult) (pediatric)
CPT/HCPCS: 99214

== ENCOUNTER → 2023-09-25 16:00 | Outpatient (BNVA) | payer MEDICAID, SELFPAY | PROVIDERS: PCP Internal Medicine; Visit Provider Physician Assistant ==

== ENCOUNTER → 2023-10-05 10:58 | Outpatient (BNVA) | payer MEDICAID, SELFPAY | PROVIDERS: PCP Internal Medicine; Visit Provider Dietitian, Registered | DX: E66.9 Obesity, unspecified (principal) | CPT/HCPCS: 97803 ==

== ENCOUNTER 2024-12-06 07:57 | Outpatient (AMB) | payer MEDICAID, SELFPAY ==
--- NOTE | 2024-12-06 09:29 | A.OFFVIS_ITS ---
VS Expanded 12/06/24 09:38 Height 5 ft Weight 265 lb 2 oz BMI 51.8 Body Fat % 50.1 Body Fat Mass 132.8 Fat Free Mass 132.2 Visceral Fat Rating 17 Body Water % 35.8 Body Water Mass 94.8 Basal Metabolic Rate/Score 1,912 Intake Visit Reasons: TV [employer] BMI 51.8 Allergies fish Allergy (Unknown, Uncoded 12/06/24 09:29) stomach upset Seafood Adverse Reaction (Mild, Uncoded 12/06/24 09:29) VOMITING Medication List - Last Reconciled 12/06/24 by Audie Stephenson MD amitriptyline 25 mg PO BEDTIME [id number]-[id number]-vqik 50-325-40 mg 1 tab PO Q8H PRN clotrimazole 1% 1 appl topical BID famotidine 40 mg PO BEDTIME propranolol 80 mg PO BID HPI HPI TV [employer] BMI 51.8: Details: Start time: 9.12am, End time: 9.57am ?I spent 40 minutes speaking with the patient on the phone plus an additional 5 minutes reviewing and updating records for a total of 45 minutes HPI Comments Details: Previous weight loss efforts: [facility] program, Wegovy: 37 lbs Wakes up: 5am, sleeps: 10pm Breakfast: 6-7am (eggs with toast) Lunch: often skips Dinner: 5-6pm (rice, beans, meat) Snacks: 12-1pm (chips/cookies), 8pm (oranges, fruits) Exercise: has gym membership Fluids: Coffee: none, tea: none, soda: none, juice: diet juice, ETOH: none PFSH Medical History (Updated 12/06/24 @ 09:33 by Audie Stephenson MD) DJD (degenerative joint disease) Hypertension Morbid obesity Migraine Surgical History (Updated 12/04/24 @ 15:37 by Amy Regan CMA) Hx of hysterectomy Hx of endoscopy Hx of breast surgery Hx of section Family History Mother Hypertension High cholesterol Father No problems noted. Sister Multiple sclerosis Hypertension Diabetes Brother Asthma Son Asthma Son No problems noted. Daughter Asthma Daughter No problems noted. Daughter No problems noted. Social History (Updated 12/04/24 @ 15:37 by MARVIN Jacob Alcohol intake: current Alcohol intake frequency: does not drink Patient Tobacco Use Status: Never used Tobacco Telehealth Telehealth Telehealth Platform: Telephone Location of provider rendering services: practice address Location of patient: address on file Patient Identification confirmed using: Name, : Yes Telehealth method: voice only Patient verbally consented to treatment: Yes Patient verbally consented to billing insurance company: Yes Patient informed of any privacy concerns related to visit: Yes Minutes spent on Phone/Video with Pt.: 45 Assessment & Plan Assessment & Plan (1) Morbid obesity: Code(s): E66.01 - Morbid (severe) obesity due to excess calories Category: Medical Plan: 1.? Plan for lap sleeve gastrectomy. If diaphragmatic or ventral hernias are present at time of surgery, these will be repaired laparoscopically as well. I emphasized the importance of close follow-up, adherence to instructions and good communication. The surgery does not replace the need to change your lifestlyle which is the cause of the obesity problem. The surgery provides the motivation to try again to change your lifestyle, it reduces the appetite and make the transition to a better lifestyle easier and doubles the amount of weight you would lose compared to doing the lifestyle change without the surgery. You will need to be on a liquid diet with protein shakes for 2 weeks before surgery to maximize weight loss and boost your nutritional status to recover better from surgery and also for the first two weeks after surgery to let the stomach heal before we introduce other foods. After the first 2 weeks we will introduce protein bars and soft foods like scrambled eggs, cottage cheese and yogurt and after the 6th week will introduce meat, fish and cooked vegetables in small amounts. Over time you should be able to eat everything in small amounts. Side effects like nausea, vomiting, heartburn or abdominal pain are not common in the practice unless you are not following in the practice. This operation requires lifetime commitment to following in our practice and communication with me. You will much less weight and experience side effects if you don?t communicate or not following in the practice. Complications are rare and in our practice is about 1/10 of the national average. However, you can develop bleeding that may require transfusion (hasn?t happened for year in the practice), you may from complications (we did not have any deaths in the practice) and infections. Infections are usually a result of breakdown in c ommunication or not understanding or following directions correctly. They are difficult to treat, they can happen during the first 6 weeks, they may require to be in the hospital for weeks or even months, not being able to eat by mouth and you may have drains and surgeries to try and correct the issue. Other risks and complications include possible conversion to an open procedure, leaks, small bowel obstruction, blood clots, cardiac, or pulmonary complications, as senior living complications such as ulcers, insufficient weight loss and vitamin deficiencies. 2. You will receive a link of our software lenard to generate an individualized nutritional and exercise plan specific for you. Please send me a screenshot of the plans you will generate Meal to include lean meat (beef, fish, pork, turkey, chicken), or greenlandic yogurt, or egg whites, or beans with a salad with olive oil and fruits (berries, pears, apples, kiwi). Avoid salt, breads, potatoes, rice, pasta, desserts. ?3. If you choose shakes, each shake would be drunk slowly, like coffee in a period of 2 hours. ?4. If you choose bars, cut each bar in 4 pieces and eat each piece in 30min ?to make each bar last 2 hours. ?5. I emphasized the importance of measuring accurately the food portion and measure it when serving the food in plate ?6. The meal portions include a specific number of forks of meat and salad. You always eat the meat portion but you can replace up to half of salad/vegetables portion with rice, potatoes or pasta, or a fruit ?if you like. The less you do it the better weight loss will be. ?7. One full-size fork is what it can be scooped on the fork without falling aside and not what can be bit with the fork. Use regular forks like those you find in a typical restaurant. ?8.? Please buy the body composition scale we discussed and send me weight measurements as soon as possible and then once a week. Always include your diet and exercise plan. 9. The best choice would be to purchase a stationary bike, elliptical or treadmill at home that can track calories. Let me know if you do so I can give you an exercise plan. ?10.?It is important of avoiding and for at least 18 months postoperatively and has been discussed at the infosession. ?11. Goal is to lose at least 1.5-2lbs per week ?12. Goal to lose 10% of your weight before surgery, which is about 26lbs. Ultimate weight goal: 239lbs before surgery 13. Please follow the diet plan exactly without any change. If you don't like something about the plan or you feel hungry you need to communicate with me so I can help you revise the plan. You should not change the plan yourself. 14. To be scheduled for EGD on Monday12/17/24 due to the history of GERD. The possibility of biopsies was discussed. Patient needs to avoid use of NSAIDs and aspirin for 1 week prior to EGD. You must be on liquids only the day before your endoscopy. Risks of perforation and bleeding was discussed with the patient. This will be an outpatient procedure with IV sedation. Orders: Orders Insulin Today E66.01 - Morbid (severe) obesity due to excess calories, G47.33 - Obstructive sleep apnea (adult) (pediatric), K21.9 - Gastro-esophageal reflux disease without esophagitis Zinc Today E66.01 - Morbid (severe) obesity due to excess calories, G47.33 - Obstructive sleep apnea (adult) (pediatric), K21.9 - Gastro-esophageal reflux disease without esophagitis C Reactive Protein Today E66.01 - Morbid (severe) obesity due to excess calories, G47.33 - Obstructive sleep apnea (adult) (pediatric), K21.9 - Gastro- esophageal reflux disease without esophagitis TSH reflex Free T4 Today E66.01 - Morbid (severe) obesity due to excess calories, G47.33 - Obstructive sleep apnea (adult) (pediatric), K21.9 - Gastro- esophageal reflux disease without esophagitis Ferritin Today E66.01 - Morbid (severe) obesity due to excess calories, G47.33 - Obstructive sleep apnea (adult) (pediatric), K21.9 - Gastro-esophageal reflux disease without esophagitis Vitamin D 25-OH Total Today E66.01 - Morbid (severe) obesity due to excess calories, G47.33 - Obstructive sleep apnea (adult) (pediatric), K21.9 - Gastro-esophageal reflux disease without esophagitis US abdomen comp w elastography Today E66.01 - Morbid (severe) obesity due to excess calories, G47.33 - Obstructive sleep apnea (adult) (pediatric), K21.9 - Gastro-esophageal reflux disease without esophagitis FL upper GI w air Today E66.01 - Morbid (severe) obesity due to excess calories, G47.33 - Obstructive sleep apnea (adult) (pediatric), K21.9 - Gastro- esophageal reflux disease without esophagitis Hemoglobin A1c Today E66.01 - Morbid (severe) obesity due to excess calories, G47.33 - Obstructive sleep apnea (adult) (pediatric), K21.9 - Gastro-esophageal reflux disease without esophagitis H Pylori Breath Test Today E66.01 - Morbid (severe) obesity due to excess calories, G47.33 - Obstructive sleep apnea (adult) (pediatric), K21.9 - Gastro- esophageal reflux disease without esophagitis Complete Blood Count Auto Diff Today E66.01 - Morbid (severe) obesity due to excess calories, G47.33 - Obstructive sleep apnea (adult) (pediatric), K21.9 - Gastro-esophageal reflux disease without esophagitis Lipid Panel Today E66.01 - Morbid (severe) obesity due to excess calories, G47.33 - Obstructive sleep apnea (adult) (pediatric), K21.9 - Gastro-esophageal reflux disease without esophagitis IRON PROFILE Today E66.01 - Morbid (severe) obesity due to excess calories, G47.33 - Obstructive sleep apnea (adult) (pediatric), K21.9 - Gastro-esophageal reflux disease without esophagitis Comprehensive Met. Panel Today E66.01 - Morbid (severe) obesity due to excess calories, G47.33 - Obstructive sleep apnea (adult) (pediatric), K21.9 - Gastro-esophageal reflux disease without esophagitis Vitamin B12 and Folate Today E66.01 - Morbid (severe) obesity due to excess calories, G47.33 - Obstructive sleep apnea (adult) (pediatric), K21.9 - Gastro- esophageal reflux disease without esophagitis Vitamin B1 Today E66.01 - Morbid (severe) obesity due to excess calories, G47.33 - Obstructive sleep apnea (adult) (pediatric), K21.9 - Gastro-esophageal reflux disease without esophagitis Vitamin A Today E66.01 - Morbid (severe) obesity due to excess calories, G47.33 - Obstructive sleep apnea (adult) (pediatric), K21.9 - Gastro-esophageal reflux disease without esophagitis XR chest 2V Today E66.01 - Morbid (severe) obesity due to excess calories, G47.33 - Obstructive sleep apnea (adult) (pediatric), K21.9 - Gastro-esophageal reflux disease without esophagitis ECG 12 lead EKG Today E66.01 - Morbid (severe) obesity due to excess calories, G47.33 - Obstructive sleep apnea (adult) (pediatric), K21.9 - Gastro-esophageal reflux disease without esophagitis Referrals Behavioral Health Referral E66.01 - Morbid (severe) obesity due to excess calories, G47.33 - Obstructive sleep apnea (adult) (pediatric), K21.9 - Gastro- esophageal reflux disease without esophagitis Nutrition/Dietitian Referral E66.01 - Morbid (severe) obesity due to excess calories, G47.33 - Obstructive sleep apnea (adult) (pediatric), K21.9 - Gastro- esophageal reflux disease without esophagitis
[2024-12-06 09:38] VITALS: BMI 51.8
== END 2024-12-06 10:02 | disposition home or self-care (01) ==
LOC: HO.HBS 07:57
PROVIDERS: PCP Internal Medicine; Visit Provider Surgery
DX: E66.01 Morbid (severe) obesity due to excess calories (principal)
CPT/HCPCS: 99204

== ENCOUNTER → 2024-12-06 07:57 | Outpatient (BNVA) | payer MEDICAID, SELFPAY | PROVIDERS: PCP Internal Medicine; Visit Provider Surgery ==

== ENCOUNTER 2024-12-13 11:12 | Outpatient (AMB) | payer OTHER, SELFPAY ==
--- NOTE | 2024-12-13 11:00 | A.OFFWM_ITS ---
Intake Intake Visit Reasons: VIDEO BH Intake Allergies fish Allergy (Unknown, Uncoded 12/06/24 09:29) stomach upset Seafood Adverse Reaction (Mild, Uncoded 12/06/24 09:29) VOMITING PFSH Medical History (Updated 12/06/24 @ 09:33 by Audie Stephenson MD) DJD (degenerative joint disease) Hypertension Morbid obesity Migraine Surgical History (Updated 12/04/24 @ 15:37 by Amy Regan [facility]) Hx of hysterectomy Hx of endoscopy Hx of breast surgery Hx of section Family History Mother Hypertension High cholesterol Father No problems noted. Sister Multiple sclerosis Hypertension Diabetes Brother Asthma Son Asthma Son No problems noted. Daughter Asthma Daughter No problems noted. Daughter No problems noted. Social History (Updated 12/04/24 @ 15:37 by Amy Regan [employer]) Alcohol intake: current Alcohol intake frequency: does not drink Patient Tobacco Use Status: Never used Tobacco Behavioral Health Assessment Weight Management Therapy Therapy Notes Details Patient is a 39-year-old female, , presenting for an initial behavioral health assessment as part of a surgical weight loss program. The patient previously enrolled in the program in 2022 but had to discontinue due to undergoing two surgeries (hysterectomy and treatment for kidney stones). The patient expresses uncertainty about proceeding with the program but has begun taking initial steps to comply with the provider?s expectations regarding the meal and exercise plans. The assessment will be continued during a follow-up visit. Presenting Concerns Referral Source WMP-Provider Reason for referral Completion of behavioral health assessment as part of process for weight-loss surgery. Precipitating Event Obesity Living Situation Current Living Situation Own At risk of losing current housing? No Satisfied with current living situation? Yes Comments PT lives with her and her 5 children ages 21, 17, 15, 14, and 11 years old. Food/Weight/Diet Expectations of change initial Goal to lose 10% of her weight before surgery, which is about 26lbs. Ultimate weight goal: 239lbs before surgery. Initial weight: 265Lbs Meal plan: hasn't started Exercise plan: Gym membership. Attends 3-4 days at week. Used treadmill for 1.5 Hr. Social History Family history and relationship Pt is 23 years ago, They have 5 children. PT has 2 siblings on mom's side, and 5 on father's side. Her parents are alive but several years ago. PT reports she's close to her mom and 2 siblings and her 's family. PT describe overall good family relationships. 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 Developmental history and status None Currently WNL. Social support , sister, mother, and friends. Also some co-workers. Community support PCP and WMP providers. Mormon/Spirituality Pentecostal. Cultural/Ethnic information PT was born and raised in [place]. Moved to the [place] when she was 9 years old. PT is bilingual. Legal Involvement and History Current or historical involvement with the legal system? None Education Highest grade completed 11th grade. Currently enrolled for her [employer]ET Preferred learning style Auditory, Verbal, Written, Learn by doing and Visual Currently enrolled in educational program? Yes Interested in further educational program? 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 She's planning to go to college and become a teacher once finished alon [employer]. Employment Employment Status [employer]lower [employer] Wants help to find employment? No Meaningful activities Spending time with children, puzzles. Been enjoying the gym. Financial Situation Describe current financial situation Comfortable and Occasional struggle Financial assistance? Food [place] and Other ([employer]) Service Service? No Mental Health and Addiction Treatment Current/Past substance abuse? No Comments Alcohol: 1-2 times at year. Max 2 drinks. Cigarettes/Tobacco: None Cannabis/Edibles: None/ Current/Past addictive behavior concerns? No Psychiatric history PT reports she's not in counseling and has never been. However 2 of her children attends services. PT denies ever been in crisis or inpatient for mental health. There is no history and/or current concern about SI/SA and self-harm or other harm. Medical and Physical Health Summary Additional Medical History not covered in history None additional Sexual History concerns None reported Physical exam in the last year? Yes Pain Screening Current pain? No Pain in the last few months? No Medications Is the patient compliant with medications? Yes Does the patient have [place] Guardian in place? Not applicable Does the patient use complimentary health approaches? No Questionnaires PHQ-9 Over the last 2 weeks, how often have you been bothered by any of the following problems? 1. Little interest or pleasure in doing things: not at all 2. Feeling down, depressed, or hopeless: not at all 3. Trouble falling or staying asleep, or sleeping too much: more than half the days 4. Feeling tired or having little energy: several days 5. Poor appetite or overeating: more than half the days 6. Feeling bad about yourself - or that you are a failure or have let yourself or your family down: not at all 7. Trouble concentrating on things, such as reading the newspaper or watching television: not at all 8. Moving or speaking so slowly that other people could have noticed. Or the opposite - being so fidgety or restless that you have been moving around a lot more than usual: not at all 9. Thoughts that you would be better off or of hurting yourself in some way: not at all Total score: 5 Depression Screening Interpretation: Positive (from new PT pack. New one will be administered at next visit.) Depression Screening Done: Yes Source: Developed by Drs. Carlos Rapp, Mily Lai, Burt Dubois and colleagues, with an educational alfa from [employer]. Binge Eating Scale Group 1 A. I don't feel self-conscious about my wt. or body size when I'm with others. B. I feel concerned about how I look to others, but it normally does not make me fell disappointed with myself C. I do get self-conscious about my appearance and wt. which makes me feel disappointed in myself. D. I feel very self-conscious about my wt. and frequently I feel intense shame and disgust for myself. I try to avoid social contacts because of my self- consciousness. Response Group 1: C Group 2 A. I don't have any difficulty eating slowly in the proper manner. B. Although I seem to gobble down foods, I don't end up feeling stuffed because of eating to much. C. At times, I tend to eat quickly and then, I feel uncomfortably full afterwards. D. I have the habit of bolting down my food, without really chewing it. When this happens I usually feel uncomfortably stuffed because I've eaten to much. Response Group 2: C Group 3 A. I feel capable to control my eating urges when I want to. B. I feel like I have failed to control my eating more than the average person. C. I feel utterly helpless when it comes to feeling in control of my eating urges. D. Because I feel so helpless about controlling my eating I have become very desperate about trying to get control. Response Group 3: A Group 4 A. I don't have the habit of eating when I'm bored. B. I sometimes eat when I'm bored, but often I'm able to get busy and get my mind off food. C. I have a regular habit of eating when I'm bored, but occasionally, I can use some other activity to get my mind off eating. D. I have a strong habit of eating when I'm bored. Nothing seems to help me breath the habit. Response Group 4: A Group 5 A. I'm usually physically hungry when I eat something. B. Occasionally, I eat something on impulse even though I really am not hungry. C. I have the regular habit of eating foods, that I might not really enjoy, to satisfy a hungry feeling even though physically, I don't need the food. D. Although I'm not physically hungry, I get a hungry feeling in my mouth that only seems to be satisfied when I eat a food, like sandwich, that fills my mouth. Sometimes, when I eat the food to satisfy my mouth hunger, I then spit the food out so I won't gain weight. Response Group 5: A Group 6 A. I don't feel any guilt or self-hate after I overeat. B. After I overeat, occasionally I feel guilt or self-hate. C. Almost all the time I experience strong guilt or self-hate after I overeat. Response Group 6: C Group 7 A. I don't lose total control of my eating when dieting even after periods when I overeat. B. Sometimes when I eat a forbidden food on a diet, I feel like I blew it and eat even more. C. Frequently, I have the habit of saying to myself, I've blown it now, why not go all the way, when I overeat on a diet. When that happens I eat more. D. I have a regular habit of starting a strict diets for myself but I break the diets by going on an eating binge. My life seems to be either a feast or famine. Response Group 7: A Group 8 A. I rarely eat so much food that I feel uncomfortably stuffed afterwards. B. Usually about once a month, I each such a quantity of food, I end up feeling very stuffed. C. I have regular periods during the month when I eat large amounts of food, either at mealtime or at snacks. D. I eat so much food that I regularly feel quite uncomfortable after eating and sometimes a bit nauseous. Response Group 8: C Group 9 A. My level of calorie intake does not go up very high or go down very low on a regular basis. B. Sometimes after I overeat, I will try to reduce my caloric intake to almost nothing to compensate for the excess calories I've eaten. C. I have a regular habit of overeating during the night. It seems that my routine is not to be hungry in the morning but overeat in the evening. D. In my adult years, I have had week-long periods where I practically starve myself. This follows periods when I overeat. It seems I live a life of either f east or famine. Response Group 9: A Group 10 A. I usually am able to stop eating when I want to. I know when enough is enough. B. Every so often, I experience a compulsion to eat which I can't seem to control. C. Frequently, I experience strong urges to eat which I seem unable to control, but at other times I can control my eating urges. D. I feel incapable of controlling urges to eat. I have a fear of not being able to stop eating voluntarily. Response Group 10: A Group 11 A. I don't have any problem stopping eating when I feel full. B. I usually can stop eating when I feel full but occasionally overeat leaving me feeling uncomfortably stuffed. C. I have a problem stopping eating once I start and usually I feel uncom fortably stuffed after I eat a meal. D. Because I have a problem not being able to stop eating when I want, I sometimes have to induce vomiting to relieve my stuffed feeling. Response Group 11: A Group 12 A. I seem to eat just as much when I'm with others, Family social gatherings as when I'm by myself. B. Sometimes, when I'm with other persons, I don't eat as much as I want to eat because I'm self-conscious about my eating. C. Frequently, I eat only a small amount of food when others are present, because I'm very embarrassed about my eating. D. I feel so ashamed about overeating that I pick times to overeat when I know no one will see me. I feel like a closet eater. Response Group 12: A Group 13 A. I eat three meals a day with only an occasional between meal snack. B. I eat 3 meals a day, but I also normally snack between meals. C. When I am snacking heavily, I get in the habit of skipping regular meals. D. There are regular periods when I seem to be continually eating, with no planned meals. Response Group 13: C Group 14 A. I don't think much about trying to control unwanted eating urges. B. At least some of the time, I feel my thoughts are pre-occupied with trying to control my eating urges. C. I feel that frequently I spend much time thinking about how much I ate or about trying not to eat anymore. D. It seems to me that most of my waking hours are pre-occupied by thoughts about eating or not eating. I feel like I'm constantly struggling not to eat. Response Group 14: C Group 15 A. I don't think about food a great deal. B. I have strong craving for food but they last only for brief periods of time. C. I have days when I can't seem to think about anything else but food. D. Most of my days seem to be pre-occupied with thoughts about food. I feel like I live to eat. Response Group 15: A Group 16 A. I usually know whether or not I'm physically hungry. I take the right portion of food to satisfy me. B. Occasionally, I feel uncertain about knowing whether or not I'm physically hungry. A these times it's hard to know how much food I should take to satisfy me. C. Even though I might know how many calories I should eat, I don't have any idea what is a normal amount of food for me. Response Group 16: C Binge Eating Score: 14 Score less than 17 Minimal Risk Score between 18-26 Moderate Risk Score between 27-46 High Risk Assessment & Plan Assessment & Plan (1) Adjustment disorder, unspecified: Code(s): F43.20 - Adjustment disorder, unspecified (2) Problems related to inappropriate diet and eating habits: Code(s): Z72.4 - Inappropriate diet and eating habits Plan The patient will return for a follow-up appointment to continue the assessment, during which a new PHQ-9 will be administered. Next appointment: 12/30/2024 at 1:00 PM via telehealth. A sooner appointment was available, but the patient is only able to attend at the scheduled time. Telehealth Telehealth Telehealth Platform: Single [employer] Location of provider rendering services: other Location of patient: other ([place], [place]) Patient Identification confirmed using: Name, : Yes Telehealth method: video Patient verbally consented to treatment: Yes Patient verbally consented to billing insurance company: Yes Patient informed of any privacy concerns related to visit: Yes Minutes spent on Phone/Video with Pt.: 60 Coding Level of Care Code New Pt Tele Psy Sanaz Rooney ([id number]) Patient Type New Diagnoses Adjustment disorder, unspecified F43.20 Problems related to inappropriate diet and eating habits Z72.4 Time Spent (min) 60
--- OUTSIDE RECORDS SUMMARY | 2024-12-13 13:22 | XMS_ITS | Clinical Summary ---
Author Organization [employer] Address [address] [facility] [address] [place] [address] Care Team Providers Care Ob/Gyn Doctor Name Role Phone Finn Duran MD Primary Care Prov ider Allergies Active Allergy Reactions Criticality Noted Date Comments Shellfish Allergy 09/26/2023 Other reaction(s): vomiting Medications cholecalciferol (Vitamin D-3) 50 MCG (2000 UT) capsule Take 1 capsule by mouth 1 (one) time each day. 08/31/20 23 Active clotrimazole (Lotrimin) 1 % cream APPLY TOPICALLY TO THE AFFECTED AREA TWICE DAILY 09/03/20 23 Active FeroSul 325 (65 Fe) MG tablet Take 1 tablet by mouth 1 (one) time each day. 08/28/20 23 Active beta carotene (vitamin A) 3 MG (40014 UT) capsule Take 6 capsules by mouth 1 (one) time each day. X 2 weeks Active pantoprazole (ProtoNix) 20 MG EC tablet TAKE 1 TABLET BY MOUTH TWICE DAILY 180 tablet 1 06/04/20 24 Active Additional Information Patient not taking.Reported on 06/17/2024 famotidine (Pepcid) 40 MG tablet TAKE 1 TABLET BY MOUTH EVERY DAY AT BEDTIME 90 tablet 1 06/04/20 24 Active chlorhexidine (Peridex) 0.12 % solution Swish 15 mL morning and night for 1 minute. Spit, do not swallow. Do not eat or drink for 30 minutes following use. 473 mL 06/17/20 24 Active ibuprofen 600 MG tablet Take 1 tablet (600 mg) by mouth every 6 (six) hours if needed for mild pain for up to 20 doses. 20 tablet 06/17/20 24 Active acetaminophen (Tylenol) 500 MG tablet Take 1 tablet (500 mg) by mouth every 6 (six) hours if needed for mild pain for up to 20 doses. 20 tablet 06/17/20 24 Active cyclobenzaprine (Flexeril) 10 MG tablet Take 1 tablet (10 mg) by mouth 3 times daily for 10 days. 30 tablet 06/18/20 24 Active Semaglutide-Weight Management (Wegovy) 1 MG/0.5ML solution auto-injector Inject 1 mg under the skin 1 (one) time per week. 4 mL 1 09/03/20 24 Active Semaglutide-Weight Management (Wegovy) 1.7 MG/0.75ML solution auto-injector Inject 1.7 mg under the skin 1 (one) time per week. 3 mL 09/12/20 24 Active propranolol (Inderal) 80 MG tablet TAKE 1 TABLET BY MOUTH TWICE DAILY 180 tablet 1 09/12/20 24 Active zolpidem (Ambien) 10 MG tablet TAKE 1 TABLET(10 MG) BY MOUTH AT BEDTIME NEEDED FOR SLEEP 30 tablet 10/09/20 24 Active amitriptyline (Elavil) 25 MG tablet Take 1 tablet (25 mg) by mouth at bedtime. 90 tablet 3 10/25/20 24 025 Active Semaglutide-Weight Management (Wegovy) 2.4 MG/0.75ML solution auto-injector Inject 0.75 mL (2.4 mg) under the skin 1 (one) time per week. 4 mL 10/25/20 24 Active Tirzepatide-Weight Management (Zepbound) 5 MG/0.5ML solution auto-injector Inject 0.5 mL (5 mg) under the skin 1 (one) time per week. 2 mL 3 12/10/19 25 Active ondansetron ODT (Zofran-ODT) 4 MG disintegrating tablet Take 1 tablet (4 mg) by mouth every 12 (twelve) hours if needed for nausea or vomiting. DISSOLVE 1 TABLET BY MOUTH EVERY 6 HOURS NEEDED FOR NAUSEA AND VOMITING 20 tablet 1 10/25/20 24 025 Active Problems Problem Noted Date Diagnosed Date Binge eating disorder 07/29/2024 Chlamydia 07/29/2024 Gastritis 07/29/2024 H/O gastritis 07/29/2024 Kidney stone on left side 07/29/2024 Assessment & Plan (09/12/2024 11:52 PM EDT): Seen at er on 08/24 was taken for stent placement, she then returned on due to pyelonephritis and stent was removed Patient refers feeling much better, no fever/chills, Has appointment with urology on October, follow up reccomendations Ovarian cyst 07/29/2024 Severe obesity 07/29/2024 Obstructive sleep apnea syndrome 06/27/2024 Assessment & Plan (06/27/2024 8:36 AM EDT): Using sleep apnea machine Class 3 severe obesity due t o excess calories with serious comorbidity and body mass index (BMI) of 50.0 to 59.9 in adult 06/27/2024 Assessment & Plan (12/10/2024 9:44 AM EST): Patient on wegovy 2.4, will change to zepbound, continue diet as discussed, follow up in 2-3 months Assessment & Plan (10/25/2024 1:36 PM EST): Will increase wegovy, patient tolerated 1.7mg, told next month script will be changed to zepbound Assessment & Plan (09/03/2024 1:59 PM EDT): Patient tolerated 0.5mg, no nausea/vomiting, has lost over 7lbs since last visit, will increase wegovy to 1mg, follow up in 6 weeks Assessment & Plan (08/22/2024 3:10 PM EDT): Patient tolerating wegovy, will increase dose to 0.5mg, follow up in 6 week to decide if increase in dose is recommended. Patient has lost 6lbs since starting therapy, encouraged diet and exercise Assessment & Plan (06/27/2024 8:40 AM EDT): Will start on wegovy, discussed risk vs benefits, follow up in 6-8 weeks. Patient has severe obesity with obstructive sleep apnea and multiple joint pain, weight loss will help not only on this conditions but will also decrease risk of cardiovascular disease. Chronic bilateral low back pain without sciatica 06/18/2024 Assessment & Plan (06/18/2024 3:40 PM EDT): Told to rest, apply ice/heat, avoid heavy lifting, continue ibuprofen, will prescribe cyclobenzaprine, follow up in 2-3 weeks if not improving Restless leg 11/17/2023 Assessment & Plan (11/17/2023 9:02 AM EST): Patient complains of restles lleg, will order iron levels, she should be taking oral supplements, will call with results Other insomnia 11/17/2023 Assessment & Plan (10/25/2024 1:36 PM EST): Controlled with zolpidem, continue sleep hygiene techniques, follow up as needed Assessment & Plan (06/27/2024 8:39 AM EDT): Controlled with zolpidem, continue lifestyle changes, follow up as needed Assessment & Plan (01/16/2024 9:40 AM EST): Symptoms improved but goal not achieved, will increase dose to 10mg, lifestyle modifications reinforced Assessment & Plan (12/18/2023 9:43 AM EST): Symptoms did not imrproved with seroquel, will change to ambien, reviewed lifestyle modification, follow up in 1 month Assessment & Plan (11/23/2023 12:39 PM EST): Symptoms did not improved with trazodone, will change seroquel, follow up in 1 month, Assessment & Plan (11/17/2023 9:02 AM EST): Will start on trazodone, reviewed lifestyle modifications S/P hysterectomy 11/17/2023 Assessment & Plan (11/17/2023 9:04 AM EST): Patient underwent surgery on 10/30, pain is controlled with tylenol/ibuprofen, no reported episode of bleeding, no fever/chill/general malaise, 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 Reinforced lifestyle modification/exercise for weight loss. She is following bariatric surgery clinics, She has menorrhagia/pcos, followed by obgyn scheduled for 10/03/23 COVID-19 2023 Migraine with aura 11/02/2018 09/28/2023 Assessment & Plan (12/10/2024 9:45 AM EST): Controlled with propanolol, no changes will be made Assessment & Plan (10/25/2024 1:38 PM EST): On propanolol and amytriptyline, no changes will be made Assessment & Plan (09/28/2023 6:33 PM EST): On topamax/propanolol as abortive therapy, will discontinue topamax due to history of kidney stone, and will start amitriptyline. Will place referral to neurology as patient refers she has more than 3 episodes a week Encounters Date Type Department Care Team Description 12/10/2024 9:15 AM EST Telemedicine [facility] [address] [place] [address] Finn Duran MD Class 3 severe obesity due to excess calories with serious comorbidity and body mass index (BMI) of 50.0 to 59.9 in adult ([facility]) (Primary Dx); Intractable migraine with aura without status migrainosus 12/10/2024 Travel 10/25/2024 11:15 AM EST Telemedicine [facility] [address] [place] [address] Finn Duran MD Other insomnia (Primary Dx); Class 3 severe obesity due to excess calories with serious comorbidity and body mass index (BMI) of 50.0 to 59.9 in adult ([facility]); Intractable migraine with aura without status migrainosus 10/25/2024 Travel 10/09/2024 Refill [facility] [address] [place] [address] Finn Duran MD 09/12/2024 2:45 PM EDT Office Visit [facility] [address] [place] [address] Finn Duran MD History of kidney stones (Primary Dx); Kidney stone on left side 09/12/2024 Travel from Last 3 Months Immunizations Name Administration Dates Next Due DTaP 08/15/2013 Influenza injectable quadriv alent IIV4 with preservative 09/18/2020 Influenza injectable quadrivalent preservative f ree 09/15/2023 MMR 08/15/2013 TD (adult), 2 Lf tetanus tox oid, preservative free, adsorbed 08/07/2007 Social History Tobacco Use Types Packs/Day Years Used Date Smoking Tobacco: Never Smokeless Tobacco: Never Tobacco Cessation:Counseling Given: Not Answered Alcohol Use Standard Drinks/Week Comments Not Currently 0 (1 standard drink = 0.6 oz pur e alcohol) Depression Answer Date Recorded Patient Health Questionnaire-9 Score 2 01/16/2024 Patient Health Questionnaire-9 Score 2 01/16/2024 Last PHQ-9: Questionnaire Data Not on file 0 01/16/2024 Housing Stability Answer Date Recorded What is your housing situation today? I have mary cabrera 12/10/[address] you li ve. Do you have problems with any of the following? None of the above 12/10/2024 Food Insecurity Answer Date Recorded Within the past 12 months, y ou worried that your food would run out before you got money to buy more: Never True 12/10/2024 Within the past 12 months,th e food you bought just didn't last and you didn't have enough money to get more: Never True Transportation Answer Date Recorded In the past 12 months, has l ack of transportation kept you from medical appts, meetings, work or from getting things needed for daily living? No 12/10/2024 Utilities Answer Date Recorded In the past 12 months, has t he electric, gas, oil or water company threatened to shut off services in your home? No 12/10/2024 Depression Answer Date Recorded Patient Health Questionnaire-2 Score 0 01/16/2024 Internet Access Answer Date Recorded Internet Access Q1 Yes 12/10/2024 Internet Access Q2 Not on file 12/10/2024 Comments Unknown Sex and Gender Information Value Date Recorded Sex Assigned at Female 09/19/2022 10:18 AM EDT Legal Sex Female 10:18 AM EDT Gender Identity Female 07/29/2024 12:40 PM EDT Sexual Orientation Choose not to disclose 2021 10:18 AM EDT Last Filed Vital Signs Vital Sign Reading Time Taken Comments Blood Pressure 141/65 09/12/2024 2:55 PM EDT Pulse 90 09/12/2024 2:55 PM EDT Temperature 35.7 ??C (96.3 ??F) 09/12/2024 2:55 PM ED T Respiratory Rate 18 09/12/2024 2:55 PM EDT Oxygen Saturation 100% 09/12/2024 2:55 PM EDT Inhaled Oxygen Concentration - - Weight 125 kg (276 lb) 09/12/2024 2:55 PM EDT Height 154.9 cm (5' 1 ) 09/12/2024 2:55 PM EDT Body Mass Index 52.15 09/12/2024 2:55 PM EDT Plan of Treatment Health Maintenance Due Date Last Done Comments Dental Prophylaxis 1986 HIV Screening 1986 Family Planning (PISQ) 2001 Hepatitis C Screening 2004 Hepatitis B Vaccines (1 of 3 - 19+ 3-dose series) 2005 Pap Smear 2007 Cervical Cancer Screening 2016 HPV/Cotest 2016 Dental Oral Exam 08/20/2021 02/16/2021 DTaP/Tdap/Td Vaccines (2 - Tdap) 08/15/2023 08/15/2013, 08/07/2007 Dental X-Ray: Full Mouth 02/18/2024 02/16/2021 COVID-19 Vaccine (4 - 2023-2 5 season) 2024 10/18/2022, 01/19/2021, 12/29/2020 Influenza Vaccine (#1) 2024 3, 09/18/2020 Depression Screening 01/16/2025 01/16/2024, 01/16/2024 Dental X-Ray: Bitewings 06/18/2025 06/17/20 24, 02/16/2021 Tobacco Screening 08/01/2025 08/01/2024 Alcohol/Substance Use Screening 12/10/2025 12/10/2024 SDOH Screening 12/10/2025 12/10/2024 Lipid Panel 05/10/2028 05/10/2023 Zoster Vaccines (1 of 2) 2036 RSV Patients and Patients Aged 60 years or older (1 - 1-dose 75+ series) 2061 HIB Vaccines Aged Out No longer eligi ble based on patient's age to complete this topic HPV Vaccines Aged Out No longer eligi ble based on patient's age to complete this topic Hepatitis A Vaccines Aged Out No long er eligible based on patient's age to complete this topic IPV Vaccines Aged Out No longer eligi ble based on patient's age to complete this topic Meningococcal Vaccine Aged Out No mik isiah eligible based on patient's age to complete this topic Pneumococcal Vaccine: Pediatrics (0 to 5 Years) and At-Risk Patients (6 to 64 Years) Aged Out No longer eligible b ased on patient's age to complete this topic RSV under 20 months Aged Out No longe r eligible based on patient's age to complete this topic Rotavirus Vaccines Aged Out No longer eligible based on patient's age to complete this topic Procedures Procedure Name Priority Date/Time Associated Diagnosis Comments BITEWING - SINGLE RADIOGRAPHIC IMAGE Routine 06/17/2024 11:30 AM EDT Symptomatic irreversible pulpitis Dental caries LIPID PANEL, STANDARD Routine 05/10/2023 10:12 AM EDT DIAGNOSTIC - DIAGNOSTIC IMAGING - INTRAORAL - COMPREHENSIVE SERIES OF RADIOGRAPHIC IMAGES Routine 02/16/2021 12:00 AM EDT COMPREHENSIVE ORAL EVALUATION - NEW OR ESTABLISHED PATIENT Routine 02/16/2021 12:00 AM EDT from Last 3 Months or Most Recently Relevant to Health Maintenance Results * Lipid Panel, Standard (05/10/2023 10:12 AM EDT) Triglycerides 101 mg/dL [facility] Comment:Desirable Triglyceri de: less than 150 mg/dLBorderline High Triglyceride 150-199 mg/dLHigh Triglyceride: 200-499 mg/dLVery High Triglyceride: greater than or equal to 5OO mg/dL Cholesterol 173 mg/dL [facility] Comment:Desirable Cholestero l: less than 200 mg/dLBorderline High Cholesterol: 200-239 mg/dLHigh Cholesterol: greater than 239 mg/dL LDL Cholesterol Calculated 103 mg/dl [facility] Comment:Desirable LDL: less than 100 mg/dLNear Optimal/Above Optimal LDL: 110- 129 mg/dLBorderline High LDL: 130-159 mg/dLHigh LDL: 160-189 mg/dLVery High LDL: greater than or equal to 190 mg/dL HDL Cholesterol 50 mg/dL [facility] Comment:Desirable HDL: great er than 40 mg/dL Note: This HDL assay may give artificially low results in patients with liver disease. 05/10/2023 10:1 2 AM EDT 05/10/2023 10:12 AM EDT [facility] External Provider LAB BLO OD ORDERABLES Final Result Performing Organization Address City/State/[facility] Co de Phone Number [facility] [address] [place] [address] [phone] from Last 3 Months or Most Recently Relevant to Health Maintenance [facility] MEDICAID STAND ADULT Care Teams Ob/Gyn Doctor Relationship Specialty Start Date End Date Finn Duran MD [address] [place] [id number] PCP - General Internal Medicine 04/07/20
--- OUTSIDE RECORDS SUMMARY | 2024-12-13 13:22 | XMS_ITS | Encounter Summary ---
Author Organization [employer] Address [address] [place] [address] [address], [place] [address] Care Team Providers Care Kindergarten Assistant Name Role Phone Finn Duran MD Primary Care Prov ider Reason for Visit * Reason Comments Med Refill Encounter Details Date Type Department Care Team (Late st Contact Info) Description 05/24/2023 Refill [facility] [address] [place] [address] Finn Duran MD [address] [place] [address] Social History Tobacco Use Types Packs/Day Years Used Date Smoking Tobacco: Never Assessed Comments Unknown Sex and Gender Information Value Date Recorded Sex Assigned at Female 09/19/2022 10:18 AM EDT Legal Sex Female 10:18 AM EDT Gender Identity Female 07/29/2024 12:40 PM EDT Sexual Orientation Choose not to disclose 2021 10:18 AM EDT documented as of this encounter Plan of Treatment Not on file documented as of this encounter Visit Diagnoses Not on filedocumented in this encounter Care Teams Kindergarten Assistant Relationship Specialty Start Date End Date Finn Duran MD [address] [place] [address] PCP - General Internal Medicine 04/07/20 documented as of this encounter
--- OUTSIDE RECORDS SUMMARY | 2024-12-13 13:22 | XMS_ITS | Encounter Summary ---
Author Organization [employer] Address [address] [place] [address] [address] [address] Care Team Providers Care Radiographer Mammographer Name Role Phone Finn Duran MD Primary Care Prov ider Encounter Details Date Type Department Care Team (Late st Contact Info) Description 11/28/2022 Orders Only [facility] [address] [place] [address] Finn Duran MD [address] [place] [address] Right carpal tunnel syndrome (Primary Dx) Social History Tobacco Use Types Packs/Day Years [...] documented as of this encounter Visit Diagnoses Diagnosis Right carpal tunnel syndrome- Primary Carpal tunnel syndrome documented in this encounter Care Teams Radiographer Mammographer Relationship Specialty Start Date End Date Finn Duran MD [address] [place] [address] PCP - General Internal Medicine 04/07/20 documented as of this encounter
--- OUTSIDE RECORDS SUMMARY | 2024-12-13 13:22 | XMS_ITS | Encounter Summary ---
Author Organization [employer] Address [address] [place] [address] [address] [address] Care Team Providers Care Garment Sorter Name Role Phone Finn Duran MD Primary Care Prov ider Encounter Details Date Type Department Care Team (Latest Contact Info) Description 02/16/2021 Abstract [facility] Dental, Provider, DDS Social History Tobacco Use Types Packs/Day Years [...] on filedocumented in this encounter Care Teams Garment Sorter Relationship Specialty Start Date End Date Finn Duran MD [address] [place] [address] PCP - General Internal Medicine 04/07/20 documented as of this encounter
--- OUTSIDE RECORDS SUMMARY | 2024-12-13 13:22 | XMS_ITS | Clinical Summary ---
Author Organization [facility] Address [address] [place] [address] Phone Care Team Providers Care Principal Systems Architect Name Role Phone Finn Duran Primary Care Provide r Allergies Active Allergy Reactions Criticality Noted Date Comments Fish Derived 04/23/2021 Medications Medication Sig Dispensed Refills Start Date End Date Status butalbital-acetaminoph en-caffeine (FIORICET, ESGIC) 50-325-40 mg per tablet Take 1 tablet by mouth every 4 hours as needed. Active clindamycin (CLEOCIN) 150 mg capsule Take 150 mg by mouth 3 times daily. Active fluticasone propionate (FLONASE NASL) by Nasal route. Activ e ketotifen fumarate (ZADITOR) 0.035 % ophthalmic solution 1 Drop 3 times daily. Active loratadine (CLARITIN) 10 mg tablet Take 10 mg by mouth daily. Active omeprazole (PriLOSEC) [address] capsule Take 20 mg by mouth daily. Active topiramate (TOPAMAX) 100 mg tablet Take 100 mg by mouth 2 times daily. Active propranolol HCl (PROPRANOLOL ORAL) Take by mouth. Ac tive Wegovy 0.5 mg/0.5 mL injection pen INJECT 0.5MG UNDERE THE SKIN 1 TIME PER WEEK 08/01/2024 Active tamsulosin (FLOMAX) 0.4 mg 24 hr capsule Take 1 capsule (0.4 mg total) by mouth. at bedtime 08/24/2024 Active Active Problems Problem Noted Date Diagnosed Date Abnormal uterine bleeding (AUB) 10/03/2023 Iron deficiency anemia due to chronic blood loss 10/03/2023 Kidney stones 04/23/2021 Obesity 04/23/2021 PCOS (polycystic ovarian syndrome) 04/23/2021 Encounters Date Type Department Care Team Description 10/10/2024 2:40 PM EST Office Visit [facility] [address] [place] [address] Giovanni Esposito MD Pelvic pain (Primary Dx); Dysuria 10/07/2024 Telephone [facility] [address] [place] [address] Giovanni Esposito MD Results 09/18/2024 4:30 PM EDT - 09/18/2024 11:59 PM EDT Hospital Encounter [facility] Ultrasound [address] [place] [address] Giovanni Esposito MD Discharge Disposition: Home or Self Care from Last 3 Months Surgical History Surgery Date Site/Laterality Comments OTHER SURGICAL HISTORY Left PROCEDURE: SURGICAL STENT SECTION PROCEDURE: HISTORICAL DELIVERY; COMMENT: x2 LITHOTRIPSY PROCEDURE: HISTORICAL LITHOTRIPSY LAPAROSCOPY DIAGNOSTIC / BIOPSY / ASPIRATION / LYSIS 04/24/2021 PROCEDURE: PELVIS LAPAROSCOPY, DIAGNOSTIC TUBAL LIGATION PROCEDURE: HISTORICAL TUBAL LIGATION OTHER SURGICAL HISTORY 10/30/2023 PROCEDURE: WI LAPS TOTAL HYSTERECT 250 GM/< W/RMVL TUBE/OVARY; COMMENT: Robot assisted total laparoscopic hysterectomy, bilateral salpingectomy Medical History Medical History Date Comments Migraine DX:Migraine Abnormal uterine bleeding DX:Abn ormal uterine bleeding Anemia DX:Anemia Renal stones DX:Renal stones Adult BMI 50.0-59.9 kg/sq m (CMS/HCC) DX:Adult BMI 50.0-59.9 kg/sq m (HCC) Family History Medical History Relation Name Comments Ovarian cancer Mother's side Maternal gre at grandmother Relation Name Status Comments Mother's side Alive Social History Tobacco Use Types Packs/Day Years Used Date Smoking Tobacco: Never Smokeless Tobacco: Never Alcohol Use Standard Drinks/Week Comments Yes 0 (1 standard drink = 0.6 oz pur e alcohol) Sex and Gender Information Value Date Recorded Sex Assigned at Not on file Gender Identity Not on file Sexual Orientation Not on file Job Start Date Occupation Industry Not on file Not on file Not on file Obstetrics History Last Filed Vital Signs Vital Sign Reading Time Taken Comments Blood Pressure 132/88 10/10/2024 3:07 PM EST Pulse 79 10/10/2024 3:07 PM EST Temperature 36 ??C (96.8 ??F) 10/10/2024 3:07 PM EST Respiratory Rate - - Oxygen Saturation - - Inhaled Oxygen Concentration - - Weight 127 kg (280 lb 12.8 oz) 10/10/2024 3:07 P M EST Height 152.4 cm (5') 08/25/2023 9:10 AM EDT Body Mass Index 54.84 08/25/2023 9:10 AM EDT Plan of Treatment Health Maintenance Due Date Last Done Comments Hepatitis B Vaccines (1 of 3 - 19+ 3-dose series) 2005 Cervical Cancer Screening: P ap Smear 2007 HIV Screening 10/19/2022 Hepatitis C Screening 10/19/2022 Social Influencers of Health Screening 10/19/2022 DTaP,Tdap,and Td Vaccines (3 - Td or Tdap) 08/15/2023 08/15/2013, 08/07/2007 COVID-19 Vaccine (2 - 2023-2 5 season) 2024 10/18/2022 Influenza Vaccine (#1) 2024 , 09/18/2020 Depression Screening 01/16/2025 01/16/2024 Cholesterol Screening (Lipid Panel) 05/10/2028 05/10/2023 MMR Vaccines Aged Out 08/15/2013 No longer eligi ble based on patient's age to complete this topic HIB Vaccines Aged Out No longer eligi [...] patient's age to complete this topic Meningococcal ACWY Vaccine Aged Out N o longer eligible based on patient's age to complete this topic Pneumococcal Vaccine: Pediatrics (0 to 5 Years) and At-Risk Patients (6 to 64 Years) Aged Out No longer eligible b ased on patient's age to complete this topic RSV Immunization Patients Under 20 months Aged Out No longer eligible b ased on patient's age to complete this topic Varicella Vaccines Aged Out No longer eligible based on patient's age to complete this topic Procedures Procedure Name Priority Date/Time Associated Diagnosis Comments MEZA URINE CULTURE TUBE Routine 10/10/2024 4:10 PM EST Dysuria URINALYSIS WITH REFLEX MICROSCOPIC AND CULTURE Routine 10/10/2024 4:10 PM EST Dysuria URINALYSIS WITH REFLEX MICROSCOPIC AND CULTURE Routine 10/10/2024 4:10 PM EST Dysuria PELVIS 1 OR 2 VIEWS Routine 09/19/2024 1 2:10 PM EDT from Last 3 Months Results * (ABNORMAL) Urinalysis with reflex microscopic and culture (10/10/2024 4:10 PM EST) Specific [place] Urine 1.014 1.003 - 1.030 LAB URINALYSIS - AUTOMATED METHOD 10/10/2024 6:24 PM [facility] pH, Urine 7.5 5.0 - 8.0 pH LAB URINALYSIS - AUTOMATED METHOD 10/10/2024 6:24 PM [facility] Leukocytes, Urine Negative Negative LAB URINALYSIS - AUTOMATED METHOD 10/10/2024 6:24 PM [facility] Nitrite, Urine Negative Negative LAB URINALYSIS - AUTOMATED METHOD 10/10/2024 6:24 PM [facility] Protein, Urine Negative <=Trace mg/dL LAB URINALYSIS - AUTOMATED METHOD 10/10/2024 6:24 PM [facility] Glucose, Urine Negative Negative mg/dL LAB URINALYSIS - AUTOMATED METHOD 10/10/2024 6:24 PM [facility] Ketones, Urine Trace(A) Negative mg/dL LAB URINALYSIS - AUTOMATED METHOD 10/10/2024 6:24 PM [facility] Urobilinogen, Urine 1.0 0.2 - 1.0 mg/dL LAB URINALYSIS - AUTOMATED METHOD 10/10/2024 6:24 PM EST [facility] Bilirubin, Urine Negative Negative LAB URINALYSIS - AUTOMATED METHOD 10/10/2024 6:24 PM [facility] Blood, Urine Negative Negative LAB URINALYSIS - AUTOMATED METHOD 10/10/2024 6:24 PM [facility] Urine Urine specimen obtained by clean catch procedure / Unknown 10/10/2024 4:10 PM EST 10/10/2024 4:29 PM EST Giovanni Esposito MD LAB URINE ORDERABLES Performing Organization Address [facility]/ZIP Co de Phone Number [facility] [address] [place] [address], * Meza urine culture tube (10/10/2024 4:10 PM EST) Extra Tube Hold for add-ons. 10/10/2024 6:01 PM EST [facility] Comment:Auto resulted. Urine Urine specimen obtained by clean catch procedure / Unknown 10/10/2024 4:10 PM EST 10/10/2024 4:23 PM EST Giovanni Esposito MD LAB URINE ORDERABLES Performing Organization Address City/[facility]/ZIP Co de Phone Number [facility] [address] [place] [address], [place] [phone] * PELVIS 1 OR 2 VIEWS (09/19/2024 12:10 PM EDT) Anatomical Region Laterality Modality Nuclear Medicine 09/18/2024 4:37 PM EDT Narrative 09/19/2024 12:10 PM EDT [facility] Diagnostic Imaging Department [address] [place] [address] Patient: ??APARNA CRENSHAW ?/Age/Sex: 1985 - 39 - F Unit#: ??[id number] ? Location/Status: ??SPDIUS/REG CLI ? Mnemonic/Ordering Site: ??PELVIS/SPUS Ordering Physician: ??GIOVANNI ESPOSITO MD Pelvis - 09/18/24 - 1711 Report Status:Signed EXAMINATION: Pelvic ultrasound. CLINICAL INDICATION: Status post hysterectomy. COMPARISON: Pelvic ultrasound 10/20/2023. TECHNIQUE: Routine transabdominal and transvaginal imaging of pelvis is performed. FINDINGS: The uterus has been surgically removed. Right ovary measures 1.32 x 1.08 x 1.27 cm. There is a simple anechoic cyst measuring 1.07-0 0.79 x 1.09 cm. Left ovary measures 1.51 x 1.28 x 1.6 to seen. There is anechoic cyst measuring 1.4 x 1.18 x 1.53 cm. There is no free fluid seen. IMPRESSION: Bilateral simple ovarian cysts. Uterus has been surgically removed. There is no free fluid. Dictating Physician: ??GENESIS STEEN Electronically Signed by: ??GENESIS STEEN Dic Date/Time: ??09/19/24 1205 Sign date/Time: ??09/19/24 1210 Procedure Note Genesis Steen MD - 09/21/2024 [facility] Diagnostic Imaging Department [address] [place] [id number] Patient: BENSON CRENSHAWDouglas Bustamante/Age/Sex: 1985 - 39 - F Unit#: [id number] Location/Status: SPDIUS/REG CLI Mnemonic/Ordering Site: PELVIS/SPUS Ordering Physician: GIOVANNI ESPOSITO MD US Pelvis - 09/18/24 - 1711 Report Status:Signed EXAMINATION: Pelvic ultrasound. CLINICAL INDICATION: Status post hysterectomy. COMPARISON: Pelvic ultrasound 10/20/2023. TECHNIQUE: Routine transabdominal and transvaginal imaging of pelvis is performed. FINDINGS: The uterus has been surgically removed. Right ovary measures 1.32 x 1.08 x 1.27 cm. There is a simple anechoiccyst measuring 1.07-0 0.79 x 1.09 cm. Left ovary measures 1.51 x 1.28 x 1.6 to seen. There is anechoic cystmeasuring 1.4 x 1.18 x 1.53 cm. There is no free fluid seen. IMPRESSION: Bilateral simple ovarian cysts. Uterus has been surgically removed. There is no free fluid. Dictating Physician: GENESIS STEEN Electronically Signed by: GENESIS STEEN Dic Date/Time: 09/19/24 1205 Sign date/Time: 09/19/24 1210 Giovanni Esposito MD IMG NM PROCEDURES from Last 3 Months Advance Directives Documents on File Type Date Recorded Patient Equine Breeder Expl anation Health Care Decision (hx) 10/30/2023 HE ALTH CARE PROXY Health Care Decision (hx) 10/30/2023 HE ALTH CARE PROXY Health Care Decision (hx) 10/30/2023 HE ALTH CARE PROXY Health Care Decision (hx) 10/30/2023 HE ALTH CARE PROXY Care Teams Principal Systems Architect Relationship Specialty Start Date End Date Finn Duran [address] [place], [place] PCP - General 08/02/23
--- OUTSIDE RECORDS SUMMARY | 2024-12-13 13:22 | XMS_ITS | Encounter Summary ---
Author Organization [employer] Address [address] [place] [address], [place] [address] Care Team Providers Care Paper Counter Name Role Phone Finn Duran MD Primary Care Prov ider Encounter Details Date Type Department Care Team ([facility] st Contact Info) Description 04/03/2023 Orders Only [facility] CHC MED & PEDS [address] [place], [place] [phone] Ann Cervantes LPN Social History Tobacco Use Types Packs/Day Years [...] on filedocumented in this encounter Care Teams Paper Counter Relationship Specialty Start Date End Date Finn Duran MD [address] [place] [address] PCP - General Internal Medicine 04/07/20 documented as of this encounter
--- OUTSIDE RECORDS SUMMARY | 2024-12-13 13:22 | XMS_ITS | Encounter Summary ---
Author Organization [employer] Address [address] [address] Care Team Providers Care Communications Technologist Name Role Phone Finn Duran MD Primary Care Prov ider Reason for Visit * Reason Onset Date Comments Medication Question 07/23/2024 Appointment Request 07/23/2024 Encounter Details Date Type Department Care Team ([facility] st Contact Info) Description 07/23/2024 Telephone [facility] MEDICINE [address] [place] [address] Finn Duran MD [address] [place] [address] Medication Question; Appointment Request Social History Tobacco Use Types Packs/Day Years Used Date Smoking Tobacco: Never Smokeless Tobacco: Never Alcohol Use Standard Drinks/Week Comments Not Currently 0 (1 standard drink = 0.6 oz pur e alcohol) Depression Answer Date Recorded Patient Health Questionnaire-9 Score 2 01/16/2024 Patient Health Questionnaire-9 Score 2 01/16/2024 Last PHQ-9: Questionnaire Data Not on file 0 01/16/2024 Housing Stability Answer Date Recorded What is your housing situation today? I have mary deborah 09/20/[address] you li ve. Do you have problems with any of the following? None of the above 09/20/2023 Food Insecurity Answer Date Recorded Within the past 12 months, y ou worried that your food would run out before you got money to buy more: Never True 09/20/2023 Within the past 12 months,th e food you bought just didn't last and you didn't have enough money to get more: Never True 11/2022 Transportation Answer Date Recorded In the past 12 months, has l ack of transportation kept you from medical appts, meetings, work or from getting things needed for daily living? No 09/20/2023 Utilities Answer Date Recorded In the past 12 months, has t he electric, gas, oil or water company threatened to shut off services in your home? Yes 09/20/2023 Depression Answer Date Recorded Patient Health Questionnaire-2 Score 0 01/16/2024 Comments Unknown Sex and Gender Information Value Date Recorded Sex Assigned at Female 09/19/2022 10:18 AM EDT Legal Sex Female 10:18 AM EDT Gender Identity Female 07/29/2024 12:40 PM EDT Sexual Orientation Choose not to disclose 2021 10:18 AM EDT documented as of this encounter Miscellaneous Notes * Telephone Encounter - Adair Mckeon - 07/29/2024 9:08 AM EDT Tc from pt calling in regards to message prior stating she never received a call regarding regarding the appt and her Wgovy shot was due today. Pt is requesting a call back to further discuss. * Telephone Encounter - Gricelda Bay RN - 07/23/2024 2:26 PM EDT TC placed to pt [phone] in regards to below message. RN informed pt that upcoming appt is for weight and unsure if PCP will allow it to be televisit. Pt reports that yesterday 07/23/24 she took the last injection of 0.25mg of Wegovy and needs the new dose for Sunday 07/29. Pt reports that she has already lost 10 pounds and denies having any side effects to the medication. RN advised a message will be sent to PCP to review and advise. Pt verbalizes understanding and agrees to plan. Pt to f/u PRN. * Telephone Encounter - Jose Luis Davison - 07/23/2024 1:21 PM EDT Tc from patient calling to request if the appt on 08/01 can be changed to a tele appt also patient has completed the medication Semaglutide-Weight Management (Wegovy) 0.25 MG/0.5ML solution auto-injector and would like to know what are the next steps documented in this encounter Plan of Treatment Not on file documented as of this encounter Visit Diagnoses Not on filedocumented in this encounter Additional Health Concerns Assessment Noted Time PHQ-9 Depression Total Score: 2 01/16/20 24 9:09 AM EST documented as of this encounter Care Teams Communications Technologist Relationship Specialty Start Date End Date Finn Duran MD [address] [place] [id number] PCP - General Internal Medicine 04/07/20 documented as of this encounter
--- OUTSIDE RECORDS SUMMARY | 2024-12-13 13:22 | XMS_ITS | Encounter Summary ---
Author Organization [employer] Address [address] [place] [address] [address] [address] Care Team Providers Care Chute Boss Name Role Phone Finn Duran MD Primary Care Prov ider Reason for Visit * Reason Comments Med Refill Encounter Details Date Type Department Care Team ([facility] st Contact Info) Description 05/22/2023 Refill C [facility] MED [facility] PEDS [address] [place] [address] Lis Smith MD [address] [place] [address] Social History Tobacco Use Types Packs/Day Years [...] on filedocumented in this encounter Care Teams Chute Boss Relationship Specialty Start Date End Date Finn Duran MD [address] [place] [address] PCP - General Internal Medicine 04/07/20 documented as of this encounter
--- OUTSIDE RECORDS SUMMARY | 2024-12-13 13:22 | XMS_ITS | Encounter Summary ---
Author Organization [employer] Address [address] [facility] 7 [place] [address] Care Team Providers Care Environmental Engineer Scientist Name Role Phone Finn Duran MD Primary Care Prov ider Encounter Details Date Type Department Care Team ([facility] st Contact Info) Description 08/07/2024 Orders Only [facility] CHC MED & PEDS [address] [place], [place] [phone] Finn Duran MD [address] [place] [address] Social History Tobacco Use Types Packs/Day Years [...] housing situation today? I have mary cabrera 09/20/[address] you li [...] documented as of this encounter Care Teams Environmental Engineer Scientist Relationship Specialty Start Date End Date Finn Duran MD [address] [place] [address] PCP - General Internal Medicine 04/07/20 documented as of this encounter
--- OUTSIDE RECORDS SUMMARY | 2024-12-13 13:22 | XMS_ITS | Encounter Summary ---
Author Organization [employer] Address [address] [place] [address] Care Team Providers Care Rn Imaging Name Role Phone Finn Duran MD Primary Care Prov ider Reason for Visit * Reason Onset Date Comments Hospital Follow-up 08/29/2024 Encounter Details Date Type Department Care Team ([facility] Contact Info) Description 08/29/2024 Telephone [facility] MED & PEDS [address] [place], [place] [phone] Finn Duran MD [address] [place] [address] Hospital Follow-up Social History Tobacco Use Types Packs/Day Years [...] encounter Miscellaneous Notes * Telephone Encounter - Nette Whitten - 08/29/2024 12:04 PM EDT Tc from pt returning call regarding HDF. Contact pt at [phone] (luxembourgish) documented in this encounter Plan of Treatment Not on file documented as of this encounter Visit Diagnoses Not on filedocumented in this encounter Additional Health Concerns Assessment Noted Time PHQ-9 Depression Total Score: 2 01/16/20 24 9:09 AM EST documented as of this encounter Care Teams Rn Imaging Relationship Specialty Start Date End Date Finn Duran MD [address] [place] [address] PCP - General Internal Medicine 04/07/20 documented as of this encounter
--- OUTSIDE RECORDS SUMMARY | 2024-12-13 13:23 | XMS_ITS | Encounter Summary ---
Author Organization [employer] Address 75 [facility] [address] [place] [address] Care Team Providers Care Sprinkler Worker Name Role Phone Finn Duran MD Primary Care Prov ider Encounter Details Date Type Department Care Team (Latest Contact Info) Description 12/10/2024 Travel Social History Tobacco Use Types Packs/Day Years [...] documented as of this encounter Care Teams Sprinkler Worker Relationship Specialty Start Date End Date Finn Duran MD [address] [place] [address] PCP - General Internal Medicine 04/07/20 documented as of this encounter
--- OUTSIDE RECORDS SUMMARY | 2024-12-13 13:23 | XMS_ITS | Encounter Summary ---
Author Organization [employer] Address [address] [place] [address] [address] [place] [address] Care Team Providers Care Rn Testing Name Role Phone Finn Duran MD Primary Care Prov ider Reason for Visit * Reason Comments Med Refill Encounter Details Date Type Department Care Team ([facility] st Contact Info) Description 02/27/2024 Refill [facility] CHC MED & PEDS [address] [place], [place] [phone] Finn Duran MD [address] [place] [address] Social History Tobacco Use Types Packs/Day Years [...] as of this encounter Care Teams Rn Testing Relationship Specialty Start Date End Date Finn Duran MD [address] [place] [address] PCP - General Internal Medicine 04/07/20 documented as of this encounter
--- OUTSIDE RECORDS SUMMARY | 2024-12-13 13:23 | XMS_ITS | Encounter Summary ---
Author Organization [employer] Address [address] [place] [address] Care Team Providers Care Assembly Worker Name Role Phone Finn Duran MD Primary Care Prov ider Reason for Referral * Consultation (Routine) - Closed Specialty Diagnoses / Procedures Referred By Contac t Referred To Contact Bariatrics Diagnoses Class 3 severe obesity due to excess calories with serious comorbidity and body mass index (BMI) of 50.0 to 59.9 in adult ([facility]) Finn Duran MD [address] [place] [address] Phone: tel: fax: Yvonne Trent MD [address] [place] [address] [address] [place] [address] Phone: tel: fax: Referral ID Status Reason Start Date Expiration Date V isits Requested Visits Authorized [id number] Closed Specialty Services Required 12/10/2024 12/10/2025 1 1 Encounter Details Date Type Department Care Team (Late st Contact Info) Description 12/10/2024 9:[address] [facility] MED & PEDS [address] [place] [address] Finn Duran MD [address] [place] [address] Class 3 severe obesity due to excess calories with serious comorbidity and body mass index (BMI) of 50.0 to 59.9 in adult (CMS/HCC) (Primary Dx); Intractable migraine with aura without status migrainosus Social History Tobacco Use Types Packs/Day Years [...] your housing situation today? I have mary sing 12/10/[address] you li [...] AM EDT documented as of this encounter Progress Notes * Finn Rob MD - 12/10/2024 9:15 AM EST Subjective Patient ID: Aparna Crenshaw is a 39 y.o. female who presents for No chief complaint on file.. Migraine This is a chronic problem. The pain is located in the Temporal region. The quality of the pain is described as throbbing. Pertinent negatives include no dizziness, nausea, tingling, visual change or vomiting. Review of Systems Gastrointestinal: Negative for nausea and vomiting. Neurological: Negative for dizziness and tingling. Objective Physical Exam Neurological: General: No focal deficit present. Mental Status: She is oriented to person, place, and time. Psychiatric: Mood and Affect: Mood normal. Behavior: Behavior normal. Assessment/Plan Problem List Items Addressed This Visit Migraine with aura Controlled with propanolol, no changes will be made Class 3 severe obesity due to excess calories with serious comorbidity and body mass index (BMI) of50.0 to 59.9 in adult ([facility]) - Primary Patient on wegovy 2.4, will change to zepbound, continue diet as discussed, follow up in 2-3 months Relevant Orders Referral to Bariatric Surgery documented in this encounter Miscellaneous Notes * Assessment & Plan Note - Finn Rob MD - 12/10/2024 9:45 AM ESTAssociated Problem(s): Migraine with aura Controlled with propanolol, no changes will be made * Assessment & Plan Note - Finn Rob MD - 12/10/2024 9:44 AM ESTAssociated Problem(s): Class 3 severe obesity due to excess calories with serious comorbidity and body mass index (BMI) of 50.0 to 59.9 in adult ([facility]) Patient on wegovy 2.4, will change to zepbound, continue diet as discussed, follow up in 2-3 months documented in this encounter Plan of Treatment Scheduled Referrals Name Type Priority Associated Diagnoses Orde r Schedule Referral to Bariatric Surgery Outpatient Referral Routine Class 3 severe obesity due to excess calories with serious comorbidity and body mass index (BMI) of 50.0 to 59.9 in adult ([facility]) Expected: 12/10/2024 (Approximate), Expires: 12/10/2025 documented as of this encounter Visit Diagnoses Diagnosis Class 3 severe obesity due to excess calories with serious comorbidity and body mass index (BMI) of 50.0 to 59.9 in adult ([facility])- Primary Intractable migraine with aura without status migrainosus documented in this encounter Additional Health Concerns Assessment Noted Time PHQ-9 Depression Total Score: 2 01/16/20 24 9:09 AM EST documented as of this encounter Care Teams Assembly Worker Relationship Specialty Start Date End Date Finn Duran MD [address] [place] [address] PCP - General Internal Medicine 04/07/20 documented as of this encounter
== END 2024-12-13 13:06 | disposition home or self-care (01) ==
LOC: HO.HBST 11:12
PROVIDERS: PCP Internal Medicine; Visit Provider Counselor Mental Health
DX: F43.20 Adjustment disorder, unspecified (principal); Z72.4 Inappropriate diet and eating habits
CPT/HCPCS: 90837

== ENCOUNTER 2024-12-17 12:57 | Day surgery (SDC) | payer MEDICAID, SELFPAY ==
--- NOTE | 2024-12-13 14:14 | P.CONAN_ITS ---
Documented by User: So Castro NP 12/13/24 14:14 HPI - Anesthesia Eval Consult details Narrative: 39yo F for Upper Endoscopy PMFSH Active Problems Active Problems: All Active Problems Migraine (Acute) DJD (degenerative joint disease) (Acute) Hypertension (Acute) Elevated PTHrP level (Acute) Vitamin A deficiency (Acute) Vitamin D deficiency (Acute) Adjustment disorder, unspecified (Acute) Panniculitis (Acute) Pre-op evaluation (Acute) GERD (gastroesophageal reflux disease) (Acute) Hx of migraines (Acute) Obstructive sleep apnea (Acute) Morbid obesity (Acute) Past Medical History Medical History DJD (degenerative joint disease) Hypertension Morbid obesity Migraine Family History Family History Mother Hypertension High cholesterol Father No problems noted. Sister Multiple sclerosis Hypertension Diabetes Brother Asthma Son Asthma Son No problems noted. Daughter Asthma Daughter No problems noted. Daughter No problems noted. Surgical History Surgical History Hx of hysterectomy Hx of endoscopy Hx of breast surgery Hx of section Social History Social History Are you a primary pediatric care coordinator to a significant other at home: No Do you presently have visiting nurse or other home services: No Alcohol intake: current Alcohol intake frequency: does not drink Patient Tobacco Use Status: Never used Tobacco Meds Allergies Allergy/AdvReac Type Severity Reaction Status Date / Time fish Allergy Unknown stomach Uncoded 12/17/24 14:11 upset Seafood AdvReac Mild VOMITING Uncoded 12/17/24 14:11 Home Medications ?Medication ?Instructions ?Recorded ?Confirmed ?Last Taken ?Type amitriptyline 25 mg tablet 25 mg PO BEDTIME 12/04/24 12/17/24 Unknown History vpjcwzgjyk-cevfjqqufyscg-fnawnzqb 1 tab PO Q8H PRN headache 12/04/24 12/17/24 Unknown History 50 mg-325 mg-40 mg tablet famotidine 40 mg tablet 40 mg PO BEDTIME 12/04/24 12/17/24 Unknown History propranolol 80 mg tablet 80 mg PO BID 12/04/24 12/17/24 Unknown History Assessment and Plan Assessment Anesthesia Assessment: Chart Reviewed Documented by User: Yvette Millan MD 12/17/24 15:02 PMF Past Medical History Medical History DJD (degenerative joint disease) Hypertension Morbid obesity Migraine Family History Family History Mother Hypertension High cholesterol Father No problems noted. Sister Multiple sclerosis Hypertension Diabetes Brother Asthma Son Asthma Son No problems noted. Daughter Asthma Daughter No problems noted. Daughter No problems noted. Surgical History Surgical History Hx of hysterectomy Hx of endoscopy Hx of breast surgery Hx of section History of Problems with Anesthesia: No Social History Social History Are you a primary pediatric care coordinator to a significant other at home: No Do you presently have visiting nurse or other home services: No Alcohol intake: current Alcohol intake frequency: does not drink Patient Tobacco Use Status: Never used Tobacco Meds Allergies Allergy/AdvReac Type Severity Reaction Status Date / Time fish Allergy Unknown stomach Uncoded 12/17/24 14:11 upset Seafood AdvReac Mild VOMITING Uncoded 12/17/24 14:11 Home Medications ?Medication ?Instructions ?Recorded ?Confirmed ?Last Taken ?Type amitriptyline 25 mg tablet 25 mg PO BEDTIME 12/04/24 12/17/24 Unknown History hwqkafbtgd-hcpcoyrayxpew-dwtpicrx 1 tab PO Q8H PRN headache 12/04/24 12/17/24 Unknown History 50 mg-325 mg-40 mg tablet famotidine 40 mg tablet 40 mg PO BEDTIME 12/04/24 12/17/24 Unknown History propranolol 80 mg tablet 80 mg PO BID 12/04/24 12/17/24 Unknown History Exam Airway Mallampati Class: III TM Dist: >3cm Neck ROM: Full Loose/Missing/Broken Teeth: No Heart: RRR Lungs: CTA Assessment and Plan Assessment Anesthesia Assessment: Anesthesia Plan Discussed Final Anesthetic Review History of Problems with Anesthesia: No NPO: Yes ASA Class: III Final Preanesthetic Review: Meds/Allgs Chart Reviewed, Consent Obtained/Reviewed and Anes Risks/Benef Reviewed Patient Risk: Intermediate Procedure Risk: Intermediate Anesthetic Plan Anesthetic Plan: MAC: Disposition: Standard PACU
--- OUTSIDE RECORDS SUMMARY | 2024-12-17 13:53 | XMS_ITS | Encounter Summary ---
Author Organization [employer] Address [address] [place] [address] [address], [place] [address] Care Team Providers Care Joiner Name Role Phone Finn Duran MD Primary Care Prov ider Reason for Visit * Reason Comments Med Refill Encounter Details Date Type Department Care Team ([facility] st Contact Info) Description 05/22/2023 Refill C [facility] MED [facility]S [address] [place] [address] Lis Smith MD [address] [place] [address] Social History Tobacco Use Types Packs/Day Years [...] on filedocumented in this encounter Care Teams Joiner Relationship Specialty Start Date End Date Finn Duran MD [address] [place] [address] PCP - General Internal Medicine 04/07/20 documented as of this encounter
--- OUTSIDE RECORDS SUMMARY | 2024-12-17 13:53 | XMS_ITS | Encounter Summary ---
Author Organization [employer] Address [address] [address] Care Team Providers Care Photogrammetric Engineer Name Role Phone Finn Duran MD Primary Care Prov ider Reason for Visit * Reason Onset Date Comments Medication Question 07/23/2024 Appointment Request 07/23/2024 Encounter Details Date Type Department Care Team ([facility] st Contact Info) Description 07/23/2024 Telephone [facility] MEDICINE [address] [place] [address] Finn Duran MD [address] [place] [address] Medication Question; Appointment Request Social History Tobacco [...] 2:26 PM EDT TC placed to pt [phone] in regards to below message. RN informed [...] documented as of this encounter Care Teams Photogrammetric Engineer Relationship Specialty Start Date End Date Finn Duran MD [address] [place] [address] PCP - General Internal Medicine 04/07/20 documented as of this encounter
--- OUTSIDE RECORDS SUMMARY | 2024-12-17 13:53 | XMS_ITS | Encounter Summary ---
Author Organization [employer] Address [address] [place] [address] [address], [place] [address] Care Team Providers Care Client Coordinator Name Role Phone Finn Duran MD Primary [...] on filedocumented in this encounter Care Teams Client Coordinator Relationship Specialty Start Date End Date Finn Duran MD [address] [place] [address] PCP - General Internal Medicine 04/07/20 documented as of this encounter
--- OUTSIDE RECORDS SUMMARY | 2024-12-17 13:53 | XMS_ITS | Encounter Summary ---
Author Organization [employer] Address [address] [place] [address] [address] [place] [address] Care Team Providers Care Publicity Director Name Role Phone Finn Duran MD Primary Care Prov ider Reason for Visit * Reason Comments Med Refill Encounter Details Date Type Department Care Team ([facility] st Contact Info) Description 02/27/2024 Refill [facility] CH[facility] MED & PEDS [address] [place], [place] [phone] Finn Duran MD [address] [place] [address] Social History Tobacco Use Types Packs/Day Years [...] documented as of this encounter Care Teams Publicity Director Relationship Specialty Start Date End Date Finn Duran MD [address] [place] [id number] PCP - General Internal Medicine 04/07/20 documented as of this encounter
--- OUTSIDE RECORDS SUMMARY | 2024-12-17 13:53 | XMS_ITS | Clinical Summary ---
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, reviewed red [...] Team Description 12/10/2024 9:15 AM EST Telemedicine [facility] MED & PEDS [address] [place] [address] Finn Duran MD Class 3 severe obesity due to excess calories with serious comorbidity and body mass index (BMI) of 50.0 to 59.9 in adult ([facility]) (Primary Dx); Intractable migraine with aura without status migrainosus 12/10/2024 Travel 10/25/2024 11:15 AM EST Telemedicine [facility] MED & PEDS [address] [place] [address] Finn Duran MD Other insomnia (Primary Dx); Class 3 severe obesity due to excess calories with serious comorbidity and body mass index (BMI) of 50.0 to 59.9 in adult (CMS/HCC); Intractable migraine with aura without status migrainosus 10/25/2024 Travel 10/09/2024 Refill [facility] MED & PEDS [address] [place] [address] Finn Duran MD from Last 3 Months Immunizations Name Administration [...] 10/18/2022, 01/19/2021, 12/29/2020 Influenza Vaccine (#1) 2024 , 09/18/2020 Depression Screening 01/16/2025 01/16/2024, 01/16/2024 Dental [...] (05/10/2023 10:12 AM EDT) Triglycerides 101 mg/dL [facility] Comment:Desirable Triglyceri de: less than 150 mg/dLBorderline High Triglyceride 150-199 mg/dLHigh Triglyceride: 200-499 mg/dLVery High Triglyceride: greater than or equal to 5OO mg/dL Cholesterol 173 mg/dL [facility] Comment:Desirable Cholestero l: less than 200 mg/dLBorderline High Cholesterol: 200-239 mg/dLHigh Cholesterol: greater than 239 mg/dL LDL Cholesterol Calculated 103 mg/dl [facility] Comment:Desirable LDL: less than 100 mg/dLNear Optimal/Above Optimal LDL: 110- 129 mg/dLBorderline High LDL: 130-159 mg/dLHigh LDL: 160-189 mg/dLVery High LDL: greater than or equal to 190 mg/dL HDL Cholesterol 50 mg/dL [facility] Comment:Desirable HDL: great er than 40 mg/dL Note: This HDL assay may give artificially low results in patients with liver disease. 05/10/2023 10:1 2 AM EDT 05/10/2023 10:12 AM EDT us [facility] External Provider LAB BLO OD ORDERABLES Final Result Performing Organization Address City/State/[facility] Co de Phone Number [facility] [address] [place] [address] [phone] from Last 3 Months or Most Recently Relevant to Health Maintenance Insurance [facility] C[place] Care Teams Nursing Home Assistant Administrator Relationship Specialty Start Date End Date Finn Duran MD [address] [place] [id number] PCP - General Internal Medicine 04/07/20
--- OUTSIDE RECORDS SUMMARY | 2024-12-17 13:53 | XMS_ITS | Encounter Summary ---
Author Organization [employer] Address [address] [place] [address] 7[place] [address] Care Team Providers Care Lay Out Maker Name Role Phone Finn Duran MD Primary Care Prov ider Encounter Details Date Type Department Care Team ([facility] st Contact Info) Description 04/03/2023 Orders Only [facility] CHC MED & PEDS [address] [place], [place] [phone] Ann Cervantes LPN Social History Tobacco Use [...] on filedocumented in this encounter Care Teams Lay Out Maker Relationship Specialty Start Date End Date Finn Duran MD [address] [place] [address] PCP - General Internal Medicine 04/07/20 documented as of this encounter
--- OUTSIDE RECORDS SUMMARY | 2024-12-17 13:53 | XMS_ITS | Clinical Summary ---
Author Organization [facility] Address [address] [place] [address] Phone Care Team Providers Care Service Tech/Welder Name Role Phone Finn Duran Primary Care [...] Description 10/10/2024 2:40 PM EST Office Visit [facility] [address] [place] [address] Giovanni Esposito MD Pelvic pain (Primary Dx); Dysuria 10/07/2024 Telephone [facility] [address] [place] [address] Giovanni Esposito MD Results 09/18/2024 4:30 PM EDT - 09/18/2024 11:59 PM EDT Hospital Encounter [facility] Ultrasound [address] [place] [address] Giovanni Esposito MD Discharge Disposition: Home or Self Care from Last 3 Months Surgical History Surgery Date Site/Laterality Comments OTHER SURGICAL HISTORY Left PROCEDURE: SURGICAL STENT SECTION PROCEDURE: HISTORICAL DELIVERY; COMMENT: x2 LITHOTRIPSY PROCEDURE: HISTORICAL LITHOTRIPSY LAPAROSCOPY DIAGNOSTIC / BIOPSY / ASPIRATION / LYSIS 04/24/2021 PROCEDURE: PELVIS LAPAROSCOPY, DIAGNOSTIC TUBAL LIGATION PROCEDURE: HISTORICAL TUBAL LIGATION OTHER SURGICAL HISTORY 10/30/2023 PROCEDURE: [place] LAPS TOTAL HYSTERECT 250 GM/< W/RMVL TUBE/OVARY; [...] and culture (10/10/2024 4:10 PM EST) Specific Solo Urine 1.014 1.003 - 1.030 LAB URINALYSIS - AUTOMATED METHOD 10/10/2024 6:24 PM [facility] pH, Urine 7.5 5.0 - 8.0 pH LAB URINALYSIS - AUTOMATED METHOD 10/10/2024 6:24 PM [facility] Leukocytes, Urine Negative Negative LAB URINALYSIS - AUTOMATED METHOD 10/10/2024 6:24 PM [facility] Nitrite, Urine Negative Negative LAB URINALYSIS - AUTOMATED METHOD 10/10/2024 6:24 PM [facility] Protein, Urine Negative <=Trace mg/dL LAB URINALYSIS - AUTOMATED METHOD 10/10/2024 6:24 PM [facility] Glucose, Urine Negative Negative mg/dL LAB URINALYSIS - AUTOMATED METHOD 10/10/2024 6:24 PM [facility] Ketones, Urine Trace(A) Negative mg/dL LAB URINALYSIS - AUTOMATED METHOD 10/10/2024 6:24 PM [facility] Urobilinogen, Urine 1.0 0.2 - 1.0 mg/dL LAB URINALYSIS - AUTOMATED METHOD 10/10/2024 6:24 PM EST [facility] Bilirubin, Urine Negative Negative LAB URINALYSIS - AUTOMATED METHOD 10/10/2024 6:24 PM [facility] Blood, Urine Negative Negative LAB URINALYSIS - AUTOMATED METHOD 10/10/2024 6:24 PM [facility] Urine Urine specimen obtained by clean catch procedure / Unknown 10/10/2024 4:10 PM EST 10/10/2024 4:29 PM EST Giovanni Esposito MD LAB URINE ORDERABLES Performing Organization Address [facility]/ZIP Co de Phone Number [facility] [address] [place] [address], * Meza urine culture tube (10/10/2024 4:10 PM EST) Extra Tube Hold for add-ons. 10/10/2024 6:01 PM EST [facility] Comment:Auto resulted. Urine Urine specimen obtained by clean catch procedure / Unknown 10/10/2024 4:10 PM EST 10/10/2024 4:23 PM EST Giovanni Esposito MD LAB URINE ORDERABLES Performing Organization Address City/[facility]/ZIP Co de Phone Number [facility] [address] [place] [address], [place] [phone] * PELVIS 1 OR 2 VIEWS (09/19/2024 12:10 PM EDT) Anatomical Region Laterality Modality Nuclear Medicine 09/18/2024 4:37 PM EDT Narrative 09/19/2024 12:10 PM EDT [facility] Diagnostic Imaging Department [address] [place] [address] Patient: ??APARNA CRENSHAW ?/Age/Sex: 1985 - 39 - F Unit#: ??[id number] ? Location/Status: ??SPDIUS/REG CLI ? Mnemonic/Ordering Site: [...] Procedure Note Genesis Steen MD - 09/21/2024 [facility] Diagnostic Imaging Department [address] [place] [address] Patient: BENSON CRENSHAWDouglas Bustamante/Age/Sex: 1985 - 39 - F Unit#: [id number] Location/Status: SPDIUS/REG CLI Mnemonic/Ordering Site: PELVIS/SPUS Ordering [...] Documents on File Type Date Recorded Patient Care Tech Expl anation Health Care Decision (hx) 10/30/2023 [facility] Health Care Decision (hx) 10/30/2023 [facility] Health Care Decision (hx) 10/30/2023 [facility] Health Care Decision (hx) 10/30/2023 [facility] Care Teams Service Tech/Welder Relationship Specialty Start Date End Date Finn Duran [address] [place], [place] PCP - General 08/02/23
--- OUTSIDE RECORDS SUMMARY | 2024-12-17 13:53 | XMS_ITS | Encounter Summary ---
Author Organization [employer] Address [address] [place] [address] Care Team Providers Care Receiving Associate Store Name Role Phone Finn Duran MD Primary Care Prov ider Reason for Referral * Consultation (Routine) - Closed Specialty Diagnoses / Procedures Referred By Contac t Referred To Contact Bariatrics Diagnoses Class 3 severe obesity due to excess calories with serious comorbidity and body mass index (BMI) of 50.0 to 59.9 in adult ([facility]) Finn Duran MD [address] [place] [address] Phone: tel: fax: Yvonne Trent MD [address] [place] [address] [address] [place] [address] Phone: tel: fax: Referral ID Status Reason Start Date Expiration Date V isits Requested Visits Authorized [id number] Closed Specialty Services Required 12/10/2024 12/10/2025 1 1 Encounter Details Date Type Department Care Team (Late st Contact Info) Description 12/10/2024 9:15 AM EST Telemedicine [facility] MED & PEDS [address] [place] [address] Finn Duran MD [address] [place] [address] Class 3 severe obesity due to excess [...] index (BMI) of50.0 to 59.9 in adult ([facility]) - Primary Patient on wegovy 2.4, will [...] (BMI) of 50.0 to 59.9 in adult ([facility]) Patient on wegovy 2.4, will change to zepbound, continue diet as discussed, follow up in 2-3 months documented in this encounter Plan of Treatment Scheduled Referrals Name Type Priority Associated Diagnoses Orde r Schedule Referral to Bariatric Surgery Outpatient Referral Routine Class 3 severe obesity due to excess calories with serious comorbidity and body mass index (BMI) of 50.0 to 59.9 in adult ([facility]) Expected: 12/10/2024 (Approximate), Expires: 12/10/2025 documented as of this encounter Visit Diagnoses Diagnosis Class 3 severe obesity due to excess calories with serious comorbidity and body mass index (BMI) of 50.0 to 59.9 in adult ([facility])- Primary Intractable migraine with aura without status migrainosus documented in this encounter Additional Health Concerns Assessment Noted Time PHQ-9 Depression Total Score: 2 01/16/20 24 9:09 AM EST documented as of this encounter Care Teams Receiving Associate Store Relationship Specialty Start Date End Date Finn Duran MD [address] [place] [address] PCP - General Internal Medicine 04/07/20 documented as of this encounter
--- OUTSIDE RECORDS SUMMARY | 2024-12-17 13:53 | XMS_ITS | Encounter Summary ---
Author Organization [employer] Address [address] [facility] 7t [place] [address] Care Team Providers Care Threading Machine Operator Name Role Phone Finn Duran MD Primary [...] documented as of this encounter Care Teams Threading Machine Operator Relationship Specialty Start Date End Date Finn Duran MD [address] [place] [address] PCP - General Internal Medicine 04/07/20 documented as of this encounter
--- OUTSIDE RECORDS SUMMARY | 2024-12-17 13:53 | XMS_ITS | Encounter Summary ---
Author Organization [employer] Address [address] [place] [address] [address] [address] Care Team Providers Care Operations Trainer Name Role Phone Finn Duran MD Primary Care Prov ider Reason for Visit * Reason Comments Med Refill Encounter Details Date Type Department Care Team (Late st Contact Info) Description 05/24/2023 Refill C [facility] [address] [place] [address] Finn Duran MD [address] [place] [address] Social History Tobacco Use Types Packs/Day Years [...] on filedocumented in this encounter Care Teams Operations Trainer Relationship Specialty Start Date End Date Finn Duran MD [address] [place] [address] PCP - General Internal Medicine 04/07/20 documented as of this encounter
--- OUTSIDE RECORDS SUMMARY | 2024-12-17 13:53 | XMS_ITS | Encounter Summary ---
Author Organization [employer] Address [address] [place] [id number] Care Team Providers Care Occupational Medicine Physician Name Role Phone Finn Duran MD Primary Care Prov ider Reason for Visit * Reason Onset Date Comments Hospital Follow-up 08/29/2024 Encounter Details Date Type Department Care Team ([facility] Contact Info) Description 08/29/[address] [facility] MED & PEDS [address] [place], [place] [phone] Finn Duran MD [address] [place] [address] Hospital Follow-up Social History Tobacco Use Types [...] returning call regarding HDF. Contact pt at [phone] (turkish) documented in this encounter Plan of Treatment Not on file documented as of this encounter Visit Diagnoses Not on filedocumented in this encounter Additional Health Concerns Assessment Noted Time PHQ-9 Depression Total Score: 2 01/16/20 24 9:09 AM EST documented as of this encounter Care Teams Occupational Medicine Physician Relationship Specialty Start Date End Date Finn Duran MD [address] [place] [id number] PCP - General Internal Medicine 04/07/20 documented as of this encounter
--- OUTSIDE RECORDS SUMMARY | 2024-12-17 13:53 | XMS_ITS | Encounter Summary ---
Author Organization [email or web address] Address [address] [facility] 7 [place] [address] Care Team Providers Care Community Relations Officer Name Role Phone Finn Duran MD Primary Care Prov ider Encounter Details Date Type Department Care Team ([facility] Contact Info) Description 08/07/2024 Orders Only [facility] MED [facility] PEDS [address] [place], [place] [phone] Finn Duran MD [address] [place] [address] Social History Tobacco Use Types Packs/Day Years [...] documented as of this encounter Care Teams Community Relations Officer Relationship Specialty Start Date End Date Finn Duran MD [address] [place] [id number] PCP - General Internal Medicine 04/07/20 documented as of this encounter
--- OUTSIDE RECORDS SUMMARY | 2024-12-17 13:53 | XMS_ITS | Encounter Summary ---
Author Organization [employer] Address [address] [place] [address] [address] [address] Care Team Providers Care Record Clerk Salesperson Name Role Phone Finn Duran MD Primary Care Prov ider Encounter Details Date Type Department Care Team (Late st Contact Info) Description 11/28/2022 Orders Only [facility] MEDICINE [address] [place] [address] Finn Duran MD [address] [place] [address] Right carpal tunnel syndrome (Primary Dx) Social [...] syndrome documented in this encounter Care Teams Record Clerk Salesperson Relationship Specialty Start Date End Date Finn Duran MD [address] [place] [address] PCP - General Internal Medicine 04/07/20 documented as of this encounter
[2024-12-17 14:12] VITALS: BP 125/70; PULSE 83; RESP 14; TEMP 36.7; O2SAT 98; BMI 51.4
[2024-12-17] MEDS: Lactated Ringers 1,000 ML 100 ML IVCONT (14:17)
[2024-12-17 14:39] VITALS: BMI 51.4
--- NOTE | 2024-12-17 14:39 | MHC.SHP ---
Pre-Procedural Eval Section A - 24 Hr Update-Section A only Date of Service: 12/17/24 The patient is an INPATIENT: No The patient has been examined within 24 hours of the surgical procedure. The History & Physical has been completed within 30 days and I have reviewed it.: Yes Section B - Complete if H&P > 30 days Chief Complaint: Morbid (severe) obesity due to excess calories Details of Present Illness: GERD Relevant Family History (Specify if Yes): No Relevant Social History: None Present Medications: None Medical History: No relevant PMH History of Previous Operations: No relevant previous surgery Allergies: Allergies Allergy/AdvReac Type Severity Reaction Status Date / Time fish Allergy Unknown stomach Uncoded 12/17/24 14:11 upset Seafood AdvReac Mild VOMITING Uncoded 12/17/24 14:11 Review of Systems Sugical H&P ROS: Negative: Constitution, Cardiovascular, Respiratory, Neurological, Psychiatric, Hem-Onc, Allergic/Immunologic, Gastrointestinal, Genitourinary, Musculoskeletal, Integumentary, Endocrine and Eyes/Ears/Nose/Throat Exam Surgical H&P Exam: Normal: HEENT, Normal: Heart, Normal: Lungs, Normal: Extremities, Normal: Abdomen, Normal: Skin and Normal: Neurological Plan Diagnosis/Plan: Unchanged (EGD to assess etiology of GERD. Risks of bleeding and perforation were discussed with the patient and she is in agreement with the plan.) I have reviewed the history and physical and performed a pertinent physical examination on my patient. No changes have occurred unless specified. Time Spent With Patient Time: Total time managing care of this patient today ____ minutes.
--- NOTE | 2024-12-17 14:42 | PM.OP ---
Brief Operative Note Date of Service: 12/17/24 Pre-op diagnosis: GERD Post-op diagnosis: same Procedure: PROCEDURE DATE: 12/17/2024 PREOPERATIVE DIAGNOSIS: GERD POSTOPERATIVE DIAGNOSIS: ?Same as above. 1) small hiatal hernia PROCEDURE: Mbxysruc-mmwlgc-vfgghirqnfaf with biopsies Surgeon: Miah Stephenson M.D.. Ph.D. Firearms Sales Associate: None ? Anesthesia: IV sedation Estimated blood loss: ?Minimal FINDINGS AND PROCEDURE: ? OPERATIVE INDICATIONS: ?The patient is a 39 year old female known to me who is interested in bariatric surgery. The patient has GERD. Based on this information I recommended an upper endoscopy to evaluate the patient's symptoms. Risks and complications of the surgery were discussed with the patient in advance particularly the possibility of perforation or bleeding that may require surgical intervention. The patient understood the risks and was in agreement with the plan. ? PROCEDURE: After informed consent was obtained by the patient, the patient was ?transferred to the Operating Room and was placed in the supine position.? After successful induction of IV sedation, a mouth block was inserted and the patient was placed in the left lateral decubitus position. An upper endoscopy was performed next, the oropharynx and esophagus appeared within the normal limits. There was a small 2-3cm hiatal hernia. The z-line was smooth. Two biopsies were obtained from the distal esophagus 2-3 cm proximal to the GE junction and two additional biopsies from the GE junction. The stomach was entered and it appeared to be of normal size. There was no gastritis. There was no stricture or ulcer. A biopsy was obtained from the gastric fundus and antrum. No significant bleeding was noted from any of the biopsy sites. Retroflexion of the scope confirmed the presence of a small diaphragmatic hernia. The scope was then advanced into the duodenum which appeared to be normal as well. At that point the duodenum ?and the stomach were decompressed and the scope was withdrawn from the patient's mouth. The patient extubated and was transferred in stable condition to the Recovery Room for further care. I was present and performed all steps of the procedure. There were no residents to assist with this case. Chance Stephenson M.D., Ph.D. Surgeon: Audie Stephenson MD Anesthesia: MAC Was an Firearms Sales Associate used for this Procedure?: No Estimated blood loss (mL): 0 IV fluids (mL): 400 Urine output (mL): 0 (No Morse to record output) Pathology: other (1) antrum x1, 2) fundus x1, 3) GE junction x2, 4) distal esophagus x2) Condition: stable Disposition: PACU
[2024-12-17 15:10] VITALS: BP 97/51; PULSE 87; RESP 16; TEMP 36.3; O2SAT 97
[2024-12-17 15:25] VITALS: BP 113/67; PULSE 84; RESP 20; TEMP 36.2; O2SAT 99
== END 2024-12-17 15:50 | disposition home or self-care (01) ==
PROVIDERS: PCP Internal Medicine; Visit Provider Surgery
PROC: 0DJ08ZZ Inspection of Upper Intestinal Tract, Via Natural or Artificial Opening Endoscopic (ICD-10-PCS; CPT 43235; principal; 2024-12-17 15:00)
DX: K21.9 Gastro-esophageal reflux disease without esophagitis (principal); E66.01 Morbid (severe) obesity due to excess calories; Z68.43 Body mass index [BMI] 50.0-59.9, adult; K44.9 Diaphragmatic hernia without obstruction or gangrene; I10 Essential (primary) hypertension; M19.90 Unspecified osteoarthritis, unspecified site; G43.909 Migraine, unspecified, not intractable, without status migrainosus; G47.33 Obstructive sleep apnea (adult) (pediatric); Z79.899 Other long term (current) drug therapy; Z98.890 Other specified postprocedural states
CPT/HCPCS: 43239; 88305; 88313; 88342; J2003; J2704

== ENCOUNTER → 2024-12-17 12:57 | Outpatient (BNV) | payer MEDICAID, SELFPAY | PROVIDERS: PCP Internal Medicine; Visit Provider Surgery | DX: K44.9 Diaphragmatic hernia without obstruction or gangrene (principal) | CPT/HCPCS: 43239 ==

== ENCOUNTER → 2025-02-12 11:16 | Outpatient (BNVA) | payer OTHER, MEDICAID, SELFPAY | PROVIDERS: PCP Internal Medicine; Visit Provider Counselor Mental Health ==

== ENCOUNTER → 2025-02-12 11:16 | Outpatient (AMB) | payer OTHER, SELFPAY ==
--- NOTE | 2025-02-12 11:10 | A.OFFWM_ITS ---
Intake Intake Visit Reasons: VIDEO BH F/U Allergies fish Allergy (Unknown, Uncoded 12/17/24 14:11) stomach upset Seafood Adverse Reaction (Mild, Uncoded 12/17/24 14:11) VOMITING PFSH Medical History DJD (degenerative joint disease) Hypertension Morbid obesity Migraine Surgical History Hx of hysterectomy Hx of endoscopy Hx of breast surgery Hx of section Family History Mother Hypertension High cholesterol Father No problems noted. Sister Multiple sclerosis Hypertension Diabetes Brother Asthma Son Asthma Son No problems noted. Daughter Asthma Daughter No problems noted. Daughter No problems noted. Social History Are you a primary caretaker to a significant other at home: No Do you presently have visiting nurse or other home services: No Alcohol intake: current Alcohol intake frequency: does not drink Patient Tobacco Use Status: Never used Tobacco Behavioral Health Assessment Weight Management Therapy Therapy Notes Details Patient is a 39-year-old female, , presenting for an initial behavioral health assessment as part of a surgical weight loss program. She previously enrolled in the program in 2022 but had to discontinue due to two surgeries (hysterectomy and treatment for kidney stones). She is now returning to pursue weight-loss surgery with the goal of continuing her journey toward a healthier life. The patient reports no history of mental health treatment, hospitalizations, or crises. She denies any past or recent safety concerns related to suicidal ideation, self-harm, or harm to others. There is no history of substance use, and no evidence of stress or emotional eating. BES scores suggest a low risk for binge eating behaviors. PHQ-9 results show no active depressive symptoms or concerns. The mental status exam is within normal limits, indicating no impairment in functioning. At this time, the patient is cleared from a behavioral health standpoint. Presenting Concerns Referral Source WMP-Provider Reason for referral Completion of behavioral health assessment as part of process for weight-loss surgery. Precipitating Event Obesity Living Situation Current Living Situation Own At risk of losing current housing? No Satisfied with current living situation? Yes Comments PT lives with her and her 5 children ages 21, 17, 15, 14, and 11 years old. Food/Weight/Diet Expectations of change Initial Goal to lose 10% of her weight before surgery, which is about 26lbs. Ultimate weight goal: 239lbs before surgery. Initial weight: 265 lbs Recent weight as of 02/10/2025: 247Lbs Meal plan: combination of shakes and 1 meal. Exercise plan: Gym membership. Attends 5 days a week. Uses the treadmill for 1hr Scale: yes. History/Relationship with food PT reports she tends to skip meals and only have 1 meal a day, but during the day she would snack all day on chips or dry cereal. After long days or when stressed, she relies on fast/znpf-pg-hxct to cook meals. She quit soda a while ago due to kidney stones and she only drinks decaf coffee 1-2 times a month. On the other hand, meals are style with multiple carbs in one meals and lots of butt foods. PT denies any stress/emotional-eating or using food as a reward or to cope. Example of meals before starting the program: Breakfast: skip Lunch: @11am, chicken tenders/veggies, a shake or boiled plantains with roasted chicken. Dinner: @5pm, style. Rice/beans/protein meats. Rarely salads or veggies. Take out 1-2 times at week (pizza or Yoruba) food) Snacks: cheeses, crackers, cereal. Drinks/Liquids: water or flavored carbonated water. History/Relationship with weight PT reports she was skinny in childhood. In HS, she was around 90 lbs and started to gain weight around age 18. PT believes she started eating very unhealthy, doing take-out and having a lot of fried foods. In the last 10 years, the patient's Lowest weight was 235Lbs and highest 300Lbs. History/Relationship with dieting food malaika, [employer] (2018-lost 80Lbs), WW. Self-diets. Binge Eating Do you frequently eat large amounts of food in short periods of time, not feeling physically hungry? No Do you feel out of control when you eat a large amount of food in a short period of time? No Do you eat large amounts of food rapidly and typically alone? No Night Eating Do you wake up at least once during the night to eat? No If you wake up in the night, do you find that it is necessary to eat something in order to fall back asleep? No Do you have little or no appetite in the morning and feel very hungry in the evening, often overeating between dinner and when you go to bed? Yes Social History Family history and relationship Pt is 23 years ago, They have 5 children. PT has 2 siblings on mom's side, and 5 on father's side. Her parents are alive but several years ago. PT reports she's close to her mom and 2 siblings and her 's family. PT describe overall good family relationships. Parental/Familial wrapper dipper obligations 5 children. Developmental history and status None Currently WNL. Social support , sister, mother, and friends. Also some co-workers. Community support PCP and WMP providers. Mandaeism/Spirituality Jewish. Cultural/Ethnic information PT was born and raised in [place]. Moved to the when she was 9 years old. PT is bilingual. Legal Involvement and History Current or historical involvement with the legal system? None Education Highest grade completed 11th grade. Currently enrolled for her HISET Preferred learning style Auditory, Verbal, Written, Learn by doing and Visual Currently enrolled in educational program? Yes Interested in further educational program? 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 She's planning to go to college and become a teacher once finished alon [facility]. Employment Employment Status Winder [employer]per Wants help to find employment? No Meaningful activities Spending time with children, puzzles. Been enjoying the gym. Financial Situation Describe current financial situation Comfortable and Occasional struggle Financial assistance? Food [employer] Other ([employer]) Service Service? No Mental Health and Addiction Treatment Current/Past substance abuse? No Comments Alcohol: 1-2 times at year. Max 2 drinks. Cigarettes/Tobacco: None Cannabis/Edibles: None/ Current/Past addictive behavior concerns? No Psychiatric history PT reports she's not in counseling and has never been. However 2 of her children attends services. PT denies ever been in crisis or inpatient for mental health. There is no history and/or current concern about SI/SA and self-harm or other harm. Medical and Physical Health Summary Additional Medical History not covered in history None additional Sexual History concerns None reported Physical exam in the last year? Yes Pain Screening Current pain? No Pain in the last few months? No Medications Is the patient compliant with medications? Yes Does the patient have [place] Guardian in place? Not applicable Does the patient use complimentary health approaches? No Trauma/Abuse History History of trauma? No Questionnaires PHQ-9 Over the last 2 weeks, how often have you been bothered by any of the following problems? 1. Little interest or pleasure in doing things: not at all 2. Feeling down, depressed, or hopeless: not at all 3. Trouble falling or staying asleep, or sleeping too much: not at all 4. Feeling tired or having little energy: not at all 5. Poor appetite or overeating: not at all 6. Feeling bad about yourself - or that you are a failure or have let yourself or your family down: not at all 7. Trouble concentrating on things, such as reading the newspaper or watching television: not at all 8. Moving or speaking so slowly that other people could have noticed. Or the opposite - being so fidgety or restless that you have been moving around a lot more than usual: not at all 9. Thoughts that you would be better off or of hurting yourself in some way: not at all Total score: 0 Depression Screening Interpretation: Negative Depression Screening Done: Yes 66416 - PHQ-9 Billing: Yes Source: Developed by Drs. Carlos Rapp, Mily Lai, Burt Dubois and colleagues, with an educational alfa from [employer]. Binge Eating Scale Group 1 A. I don't feel self-conscious about my wt. or body size when I'm with others. B. I feel concerned about how I look to others, but it normally does not make me fell disappointed with myself C. I do get self-conscious about my appearance and wt. which makes me feel disappointed in myself. D. I feel very self-conscious about my wt. and frequently I feel intense shame and disgust for myself. I try to avoid social contacts because of my self- consciousness. Response Group 1: C Group 2 A. I don't have any difficulty eating slowly in the proper manner. B. Although I seem to gobble down foods, I don't end up feeling stuffed because of eating to much. C. At times, I tend to eat quickly and then, I feel uncomfortably full afterwards. D. I have the habit of bolting down my food, without really chewing it. When this happens I usually feel uncomfortably stuffed because I've eaten to much. Response Group 2: C Group 3 A. I feel capable to control my eating urges when I want to. B. I feel like I have failed to control my eating more than the average person. C. I feel utterly helpless when it comes to feeling in control of my eating urges. D. Because I feel so helpless about controlling my eating I have become very desperate about trying to get control. Response Group 3: A Group 4 A. I don't have the habit of eating when I'm bored. B. I sometimes eat when I'm bored, but often I'm able to get busy and get my mind off food. C. I have a regular habit of eating when I'm bored, but occasionally, I can use some other activity to get my mind off eating. D. I have a strong habit of eating when I'm bored. Nothing seems to help me breath the habit. Response Group 4: A Group 5 A. I'm usually physically hungry when I eat something. B. Occasionally, I eat something on impulse even though I really am not hungry. C. I have the regular habit of eating foods, that I might not really enjoy, to satisfy a hungry feeling even though physically, I don't need the food. D. Although I'm not physically hungry, I get a hungry feeling in my mouth that only seems to be satisfied when I eat a food, like sandwich, that fills my mouth. Sometimes, when I eat the food to satisfy my mouth hunger, I then spit the food out so I won't gain weight. Response Group 5: A Group 6 A. I don't feel any guilt or self-hate after I overeat. B. After I overeat, occasionally I feel guilt or self-hate. C. Almost all the time I experience strong guilt or self-hate after I overeat. Response Group 6: C Group 7 A. I don't lose total control of my eating when dieting even after periods when I overeat. B. Sometimes when I eat a forbidden food on a diet, I feel like I blew it and eat even more. C. Frequently, I have the habit of saying to myself, I've blown it now, why not go all the way, when I overeat on a diet. When that happens I eat more. D. I have a regular habit of starting a strict diets for myself but I break the diets by going on an eating binge. My life seems to be either a feast or famine. Response Group 7: A Group 8 A. I rarely eat so much food that I feel uncomfortably stuffed afterwards. B. Usually about once a month, I each such a quantity of food, I end up feeling very stuffed. C. I have regular periods during the month when I eat large amounts of food, either at mealtime or at snacks. D. I eat so much food that I regularly feel quite uncomfortable after eating and sometimes a bit nauseous. Response Group 8: C Group 9 A. My level of calorie intake does not go up very high or go down very low on a regular basis. B. Sometimes after I overeat, I will try to reduce my caloric intake to almost nothing to compensate for the excess calories I've eaten. C. I have a regular habit of overeating during the night. It seems that my routine is not to be hungry in the morning but overeat in the evening. D. In my adult years, I have had week-long periods where I practically starve myself. This follows periods when I overeat. It seems I live a life of either feast or famine. Response Group 9: A Group 10 A. I usually am able to stop eating when I want to. I know when enough is enough. B. Every so often, I experience a compulsion to eat which I can't seem to control. C. Frequently, I experience strong urges to eat which I seem unable to control, but at other times I can control my eating urges. D. I feel incapable of controlling urges to eat. I have a fear of not being able to stop eating voluntarily. Response Group 10: A Group 11 A. I don't have any problem stopping eating when I feel full. B. I usually can stop eating when I feel full but occasionally overeat leaving me feeling uncomfortably stuffed. C. I have a problem stopping eating once I start and usually I feel uncomforta jacqui stuffed after I eat a meal. D. Because I have a problem not being able to stop eating when I want, I sometimes have to induce vomiting to relieve my stuffed feeling. Response Group 11: A Group 12 A. I seem to eat just as much when I'm with others, Family social gatherings as when I'm by myself. B. Sometimes, when I'm with other persons, I don't eat as much as I want to eat because I'm self-conscious about my eating. C. Frequently, I eat only a small amount of food when others are present, because I'm very embarrassed about my eating. D. I feel so ashamed about overeating that I pick times to overeat when I know no one will see me. I feel like a closet eater. Response Group 12: A Group 13 A. I eat three meals a day with only an occasional between meal snack. B. I eat 3 meals a day, but I also normally snack between meals. C. When I am snacking heavily, I get in the habit of skipping regular meals. D. There are regular periods when I seem to be continually eating, with no planned meals. Response Group 13: C Group 14 A. I don't think much about trying to control unwanted eating urges. B. At least some of the time, I feel my thoughts are pre-occupied with trying to control my eating urges. C. I feel that frequently I spend much time thinking about how much I ate or about trying not to eat anymore. D. It seems to me that most of my waking hours are pre-occupied by thoughts about eating or not eating. I feel like I'm constantly struggling not to eat. Response Group 14: C Group 15 A. I don't think about food a great deal. B. I have strong craving for food but they last only for brief periods of time. C. I have days when I can't seem to think about anything else but food. D. Most of my days seem to be pre-occupied with thoughts about food. I feel like I live to eat. Response Group 15: A Group 16 A. I usually know whether or not I'm physically hungry. I take the right portion of food to satisfy me. B. Occasionally, I feel uncertain about knowing whether or not I'm physically hungry. A these times it's hard to know how much food I should take to satisfy me. C. Even though I might know how many calories I should eat, I don't have any idea what is a normal amount of food for me. Response Group 16: C Binge Eating Score: 14 Score less than 17 Minimal Risk Score between 18-26 Moderate Risk Score between 27-46 High Risk Assessment & Plan Assessment & Plan (1) Adjustment disorder, unspecified: Code(s): F43.20 - Adjustment disorder, unspecified (2) Problems related to inappropriate diet and eating habits: Code(s): Z72.4 - Inappropriate diet and eating habits Plan PT has been cleared from a behavioral health standpoint. She will be seen for follow-up in 1-3 weeks post-operatively. Telehealth Telehealth Telehealth Platform: [facility] Location of provider rendering services: other Location of patient: other ([place], [place].) Patient Identification confirmed using: Name, : No Telehealth method: video Patient verbally consented to treatment: Yes Patient verbally consented to billing insurance company: Yes Patient informed of any privacy concerns related to visit: Yes Minutes spent on Phone/Video with Pt.: 50 Coding Level of Care Code Established Pt Tele Psytx 45 mins ([id number]) Patient Type Established Diagnoses Adjustment disorder, unspecified F43.20 Problems related to inappropriate diet and eating habits Z72.4 Additional Codes PHQ-9 - 65211 - PHQ-9 Billing: Yes ([id number]) Time Spent (min) 50
== END ==
PROVIDERS: PCP Internal Medicine; Visit Provider Counselor Mental Health
DX: F43.20 Adjustment disorder, unspecified (principal); Z72.4 Inappropriate diet and eating habits
CPT/HCPCS: 90834

== ENCOUNTER 2025-04-29 16:12 | Outpatient (REF) | payer MEDICAID, SELFPAY ==
[2025-04-29 16:49] LABS: Parathyroid Hormone Intact 164.3 pg/mL (8.7-77.1)
[2025-04-29 17:04] LABS: Vitamin D 25-OH Total 12.7 ng/mL (>30)
--- OUTSIDE RECORDS SUMMARY | 2025-04-29 18:56 | XMS_ITS | Encounter Summary ---
Author Organization [employer] Address [address] [place] [address] [address] [place] [address] Care Team Providers Care Identifier Horse Name Role Phone Finn Duran MD Primary Care Prov ider Reason for Visit * Reason Onset Date Comments Med Refill 02/26/2025 Encounter Details Date Type Department Care Team ([facility] st Contact Info) Description 02/26/2025 Refill [facility] [address] [place] [address] Finn Duran MD [address] [place] [address] Social History Tobacco Use Types Packs/Day Years [...] as of this encounter Plan of Treatment Upcoming Encounters Date Type Department Care Team ([facility] st Contact Info) Description 06/26/2025 3:45 PM EDT Office Visit [facility] [address] [place] [address] Finn Duran MD [address] [place] [address] documented as of this encounter Visit Diagnoses Not on filedocumented in this encounter Additional Health Concerns Assessment Noted Time PHQ-9 Depression Total Score: 2 01/16/20 24 9:09 AM EST documented as of this encounter Care Teams Identifier Horse Relationship Specialty Start Date End Date Finn Duran MD [address] [place] [address] PCP - General Internal Medicine 04/07/20 documented as of this encounter
[2025-04-30 14:38] LABS: Calcium, Ionized 5.2 mg/dL (4.7-5.5)
[2025-05-07 02:04] LABS: Parathyroid Hormone Related Pr 10 pg/mL (11-20)
== END 2025-04-29 16:13 | disposition home or self-care (01) ==
LOC: HO.LAB 16:12
PROVIDERS: PCP Internal Medicine; Visit Provider Internal Medicine
DX: E21.3 Hyperparathyroidism, unspecified (principal)
CPT/HCPCS: 36415; 82306; 82330; 83519; 83970

== ENCOUNTER 2025-09-08 12:03 | Outpatient (REF) | payer MEDICAID, SELFPAY | END 2025-09-08 12:04 | disposition home or self-care (01) | LOC: HO.CHCLNP 12:03 | PROVIDERS: PCP Internal Medicine; Visit Provider Internal Medicine | DX: N30.00 Acute cystitis without hematuria (principal) | CPT/HCPCS: 87086 ==